=== PATIENT | male | born 1960 | race Two or more races ===

== ENCOUNTER → 2024-02-28 | Outpatient (CLI) | payer OTHER, MEDICAID | END | disposition home or self-care (01) | LOC: Rad HDHVI 10:53 | PROVIDERS: ATTEND Internal Medicine Cardiovascular Disease | DX: R07.9 Chest pain, unspecified (principal); I10 Essential (primary) hypertension; R06.02 Shortness of breath | CPT/HCPCS: 93306 ==

== ENCOUNTER → 2024-03-07 | Outpatient (CLI) | payer OTHER, MEDICAID ==
[~2024-03-07] VITALS: Ht 182.9 cm; Wt 106.1 kg
[~2024-03-07] MED LIST: ADENOSINE 89 MG in GIVE UN-DILUTED 0 ML IV ONE; ADENOSINE 90 MG/30 ML INJ IV ONE
== END | disposition home or self-care (01) ==
LOC: Rad HDHVI 07:57
PROVIDERS: ATTEND Internal Medicine Cardiovascular Disease
DX: I10 Essential (primary) hypertension (principal); E11.9 Type 2 diabetes mellitus without complications; E78.5 Hyperlipidemia, unspecified; R07.89 Other chest pain; Z82.49 Family history of ischemic heart disease and other diseases of the circulatory system
CPT/HCPCS: 78452; 93005; 96374; 96375; A9500; J0153

== ENCOUNTER 2024-12-26 14:36 | Inpatient (IN) | payer MEDICAID, OTHER ==
[~2024-12-26] VITALS: Ht 185.4 cm; Wt 104.3 kg
--- NOTE | 2024-12-26 15:21 | ED.PDOC ---
HPI Comments 64 y.o male with PMHx of hypothyroidism, AFIB, HTN and DM, presents to the ED for a chief complaint of chest pain associated with SOB, nausea, vomiting and dizziness that started 3 days ago. Patient also mentions HR ranges between 145- 150 since symptoms presented at rest. He was recent admitted at [facility] due to PNA. 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 Upon ED arrival, patient was hypoxic with SPO2 of 87% RA and was placed on 4liters NC. He denies any tobacco, alcohol or substance use. Chief Complaint: Chest Pain Time Seen by MD: 15:00 Reviewed Notes: Nurses Notes, Medications, Allergies Allergies: Coded Allergies: NO KNOWN ALLERGIES (Unverified , 10/18/22) Information Source: Patient Mode of Arrival: Wheelchair Severity: Moderate Duration: Since onset Location: Substernal Radiation: No Radiation Quality: Sharp Cardiac Risk Factors: Hyperlipidemia, HTN PE Risk Factors: None History of: Similar pain in past Modifying Factors: Nothing Associated Signs and Symptoms: SOB Past Medical History PAST MEDICAL HISTORY: AFIB, COPD, DM, HTN, Thyroid Family History Family History: Reviewed,noncontributory to illness Social History Smoker: Non-Smoker Alcohol: Denies ETOH Use Drugs: Denies Drug Use Lives In: Home Constitutional: reports: malaise; denies: chills, diaphoresis, fatigue, fever, sweats, weakness, others EENTM: denies: blurred vision, double vision, ear bleeding, ear discharge, ear drainage, ear pain, ear ringing, eye pain, eye redness, hearing loss, mouth pain, mouth swelling, nasal discharge, nose bleeding, nose congestion, nose pain, photophobia, tearing, throat pain, throat swelling, voice changes, others Respiratory: reports: SOB at rest, shortness of breath; denies: cough, hemoptysis, orthopnea, SOB with excertion, stridor, wheezing, others Cardiovascular: reports: chest pain; denies: dizzy spells, diaphoresis, Dyspnea on exertion, edema, irregular heart beat, left arm pain, lightheadedness, palpitations, PND, syncope, others Gastrointestinal: reports: nausea, vomiting; denies: abdomen distended, abdominal pain, blood streaked bowels, constipated, diarrhea, dysphagia, difficulty swallowing, hematemesis, melena, poor appetite, poor fluid intake, rectal bleeding, rectal pain, others Genitourinary: denies: burning, dysuria, flank pain, frequency, hematuria, incontinence, penile discharge, penile sore, pain, testicle pain, testicle swelling, urgency, others Neurological: reports: dizziness; denies: fainting, headache, left sided numbness, left sided weakness, numbness, paresthesia, pre-existing deficit, right sided numbness, right sided weakness, seizure, speech problems, tingling, tremors, weakness, others Musculoskeletal: denies: back pain, gout, joint pain, joint swelling, muscle pain, muscle stiffness, neck pain, others Integumetry: denies: bruises, change in color, change in hair/nails, dryness, laceration, lesions, lumps, rash, wounds, others Allergic/Immunocompromised: denies: Difficulty Healing, Frequent Infections, Hives, Itching, others Hematologic/Lymphatic: denies: anemia, blood clots, easy bleeding, easy bruising, swollen glands, others Endocrine: denies: excessive hunger, excessive sweating, excessive thirst, excessive urination, flushing, intolerance to cold, intolerance to heat, unexplained weight gain, unexplained weight loss, others Psychiatric: denies: anxiety, bipolar disorder, depression, hopeless, panic disorder, schizophrenia, sleepless, suicidal, others All Other Systems: Reviewed and Negative Physical Exam General Appearance: Moderate Distress HEENT: Normal ENT Inspection, Pharynx Normal, TMs Normal Neck: Full Range of Motion, Non-Tender, Normal, Normal Inspection Respiratory: Other (Coarse breath sounds) Cardiovascular: Irregular Breast Exam: Deferred Gastrointestinal: No Organomegaly, Non Tender, No Pulsatile Mass, Normal Bowel Sounds, Soft Genitalia: Deferred Pelvic: Deferred Rectal: Deferred Extremities: No calf tenderness, Normal capillary refill, Normal inspection, Normal range of motion, Non-tender, No pedal edema Musculoskeletal : Apperance: Normal 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 Was a procedure done?: No CP Differential Dx Differential Diagnosis: A-fib, A-Flutter, Angina, Anxiety / Panic Attack, Atrial Dysrhythmia, Electrolyte Disorder Differential Diagnosis: Angina, Chest Wall Pain, Cholelithiasis, Costochondritis, Pericarditis X-Ray, Labs, Meds, VS Vital Signs Date Time Temp Pulse Resp B/P (MAP) Pulse Ox O2 Delivery O2 Flow Rate FiO2 12/26/24 17:33 105 12/26/24 16:30 117 23 100/66 (77) 91 12/26/24 16:24 113 23 88 Nasal Cannula* 4 36 12/26/24 16:15 113 19 94/58 (70) 91 12/26/24 16:00 112 22 92/68 (76) 92 12/26/24 15:50 96 20 92/67 (75) 92 12/26/24 15:32 113 12/26/24 15:21 121 12/26/24 15:02 98.8 113 23 90/63 (72) 88 98.8 12/26/24 14:42 121 12/26/24 14:40 98.2 129 16 125/76 87 98.2 Lab Test 12/26/24 15:52 12/26/24 15:35 12/26/24 14:45 Range/Units Troponin I High Sensitivity < 3 L < 3 L </=54 ng/L Lactic Acid Level 2.0 0.4-2.0 mmol/L White Blood Count 15.1 H 4.4-10.8 10^3/uL Red Blood Count 4.65 4.5-5.90 10^6/uL Hemoglobin 13.3 L 13.5-17.5 g/dL Hematocrit 39.5 L 41.0-53.0 % Mean Corpuscular Volume 85.0 80.0-100.0 fL Mean Corpuscular Hemoglobin 28.5 28.0-32.0 pg Mean Corpuscular Hemoglobin Concent 33.6 32.0-36.0 g/dL Red Cell Distribution Width 16.7 H 11.8-14.3 % Platelet Count 297 140-450 10^3/uL Mean Platelet Volume 8.7 6.9-10.8 fL Neutrophils (%) (Auto) 84.7 H 37.0-80.0 % Lymphocytes (%) (Auto) 7.4 L 10.0-50.0 % Monocytes (%) (Auto) 7.7 0.0-12.0 % Eosinophils (%) (Auto) 0.1 0.0-7.0 % Basophils (%) (Auto) 0.1 0.0-2.0 % Neutrophils # (Auto) 12.8 H 1.6-8.6 10 ^3/uL Lymphocytes # (Auto) 1.1 0.4-5.4 10 ^3/uL Monocytes # (Auto) 1.2 0-1.3 10 ^3/uL Eosinophils # (Auto) 0 0-0.8 10 ^3/uL Basophils # (Auto) 0 0-0.2 10 ^3/uL Nucleated Red Blood Cells 0.0 % Sodium Level 140 136-145 mmol/L Potassium Level 4.3 3.5-5.1 mmol/L Chloride Level 103 98-107 mmol/L Carbon Dioxide Level 25 20-31 mmol/L Anion Gap 12 5-15 Blood Urea Nitrogen 22 9-23 mg/dL Creatinine 1.92 H 0.700-1.30 mg/dL Glomerular Filtration Rate Calc 38 >90 mL/min BUN/Creatinine Ratio 11.5 10.0-20.0 Serum Glucose 106 74-106 mg/dL Calcium Level 8.6 L 8.7-10.4 mg/dL Current Medications Medications (Trade) Dose Ordered Sig/Justine Route Start Time Stop Time Status Last Admin Cefepime HCl 50 ml @ 50 mls/hr ONCE ONCE IV 12/26/24 15:15 12/26/24 16:14 DC 12/26/24 15:47 Sodium Chloride 1,000 ml @ 1,000 mls/hr Q1H ONCE IV 12/26/24 15:15 12/26/24 16:14 DC 12/26/24 15:46 . [place] [id number] Ph: [phone] DIAGNOSTIC IMAGING Diagnostic Imaging Report : [id number] Signed PATIENT: ORALIA MATAMOROS ACCT: [id number] UNIT: [id number] : 1960 LOC: ER ROOM / BED: / AGE / SEX: 64 / M ADM STATUS: REG ER SERVICE 1510 ORDERING PHYSICIAN: ELINA HARRIS MD PROCEDURE(s): CXRP - CHEST PORTABLE REASON: sob ORDER NUMBER(s): [id number], ACCESSION NUMBER(s): [id number] CHEST RADIOGRAPH Indication: sob Technique: Single frontal view of the chest was obtained Comparison: XR CHEST 1 VIEW on DOS: 12/16/24, XR CHEST 1 VIEW on DOS: 12/16/24, XR CHEST 1 VIEW on DOS: 12/16/24 FINDINGS: Lines and Tubes: None Lungs: Interstitial prominence with left mid and lower lung zone opacities. Pleura: No effusion. No pneumothorax. Cardiomediastinal contours: Unremarkable Bones: No acute osseous abnormality. IMPRESSION: Interstitial prominence with left mid and lower lung zone opacity which may represent multifocal pneumonia. ATED BY: KATHY KIMBALL DO DICTATED DATE/TIME: 12/26/241540 SIGNED BY: KATHY KIMBALL DO SIGNED DATE/TIME: 12/26/241540 CC: Patient alert. Placed on oxygen. Possible pneumonitis. Answering questions. Possible sepsis. WBC elevated. Establish intravenous access. Was given fluids. Was given antibiotics. Explained to the patient. Continue monitoring. Time of 1ST Reevaluation: 15:11 Reevaluation 1ST: Unchanged Patient Education/Counseling: Diagnosis, Treatment, Prognosis Family Education/Counseling: Diagnosis, Treatment, Prognosis SEPSIS Sepsis Screen Date sepsis recognized/suspect: Dec 26, 2024 Time Sepsis recognized/suspect: 1440 Recent Procedure: No On Antibiotic Therapy: No Respiratory Rate >20: No Heart Rate >90: Yes Temp<36 C (96.8 F) or >38.3 C: No SBP <90 or MAP <65 mmHG: No New Acute Mental Status Change: No Is the patient on CPAP, BIPAP,: No Physician Orders Electrocardigram (12/26/24 15:37) Electrocardigram (12/26/24 17:37) Chest Portable (12/26/24 15:10) Urinalysis (12/26/24 15:10) Blood Culture (12/26/24 15:10) Sodium Chloride 0.9% (12/26/24 15:15) Amiodarone 450mg/250ml Ae (Cordarone) (12/26/24 16:30) Azithromycin 500mg/ 250ml (Zithromax 50 (12/26/24 16:30) Vital Signs Date Time Temp Pulse Resp B/P (MAP) Pulse Ox O2 Delivery O2 Flow Rate FiO2 12/26/24 17:33 105 12/26/24 16:30 117 23 100/66 (77) 91 12/26/24 16:24 113 23 88 Nasal Cannula* 4 36 12/26/24 16:15 113 19 94/58 (70) 91 12/26/24 16:00 112 22 92/68 (76) 92 12/26/24 15:50 96 20 92/67 (75) 92 12/26/24 15:32 113 12/26/24 15:21 121 12/26/24 15:02 98.8 113 23 90/63 (72) 88 98.8 12/26/24 14:42 121 12/26/24 14:40 98.2 129 16 125/76 87 98.2 Laboratory Tests Test 12/26/24 14:45 12/26/24 15:35 White Blood Count 15.1 10^3/uL (4.4-10.8) H Lactic Acid Level 2.0 mmol/L (0.4-2.0) Medications Medications Dose Ordered Sig/Justine Route Start Time Stop Time Status Last Admin Dose Admin Cefepime HCl 50 ml @ 50 mls/hr ONCE ONCE IV 12/26/24 15:15 12/26/24 16:14 DC 12/26/24 15:47 Sodium Chloride 1,000 ml @ 1,000 mls/hr Q1H ONCE IV 12/26/24 15:15 12/26/24 16:14 DC 12/26/24 15:46 Departure 1 Departure Time of Disposition: 16:16 Impression: Primary Impression: Atrial fibrillation Qualified Codes: I48.0 - Paroxysmal atrial fibrillation Additional Impressions: Sepsis, unspecified organism Qualified Codes: A41.9 - Sepsis, unspecified organism Pneumonitis Disposition: ADMITTED INPATIENT Admit to: Med Surg Condition: Guarded Critical Care Note Critical Care Time?: Yes (90 min-critical care time only) Stability Stability form required: No Heart Score Heart Score: Heart Score Response (Comments) Value History Moderate Suspicious 1 EKG Normal 0 Age >65 2 Risk Factors >3 or Hx ASHD 2 Troponin Normal limit 0 Total 5 I personally scribed for ELINA HARRIS MD ([email or web address]) on 12/26/24 at 15:21. Electronically submitted by Naomi Anand ([facility]). I personally scribed for ELINA HARRIS MD ([email or web address]) on 12/26/24 at 17:43. Electronically submitted by Vineet Camejo [email or web address]). ELINA HARRIS MD Dec 26, 2024 15:21
[2024-12-26 15:24] LABS: Hematocrit 39.5 % (41.0-53.0); Hemoglobin 13.3 g/dL (13.5-17.5); Mean Corpuscular Hemoglobin 28.5 pg (28.0-32.0); Mean Corpuscular Volume 85.0 fL (80.0-100.0); Nucleated Red Blood Cells % 0.0 %
[2024-12-26 15:29] LABS: Chloride 103 mmol/L (98-107); Potassium 4.3 mmol/L (3.5-5.1); Sodium 140 mmol/L (136-145)
[2024-12-26 15:30] LABS: Anion Gap 12 (5-15); Carbon Dioxide 25 mmol/L (20-31)
[2024-12-26 15:32] LABS: Calcium 8.6 mg/dL (8.7-10.4)
--- NOTE | 2024-12-26 15:34 | ECG ---
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
[2024-12-26 15:35] LABS: BUN/Creatinine Ratio 11.5 (10.0-20.0); Blood Urea Nitrogen 22 mg/dL (9-23)
[2024-12-26 15:39] LABS: Glucose 106 mg/dL (74-106)
--- NOTE | 2024-12-26 15:43 | DVH ---
CHEST RADIOGRAPH Indication: sob Technique: Single frontal view of the chest was obtained Comparison: XR CHEST 1 VIEW on DOS: 12/16/24, XR CHEST 1 VIEW on DOS: 12/16/24, XR CHEST 1 VIEW on DO S: 12/16/24 FINDINGS: Lines and Tubes: None Lungs: Interstitial prominence with left mid and lower lung zone opacities. Pleura: No effusion. No pneumothorax. Cardiomediastinal contours: Unremarkable Bones: No acute osseous abnormality. IMPRESSION: Interstitial prominence with left mid and lower lung zone opacity which may represent multifocal pneu monia.
[2024-12-26] MEDS: SODIUM CHLORIDE 0.9% 1,000 ML IV ONE ×2 (15:46→17:50)
[2024-12-26] MEDS: CEFEPIME 1GM/50ML 50 ML IV ONE (15:47)
[2024-12-26] MEDS: ONDANSETRON HCL 4 MG/2 ML VIAL IV ONE (15:47)
[2024-12-26 16:24] VITALS: PULSE 113; RESP 23; O2SAT 88
[2024-12-26] MEDS: MORPHINE SULFATE INJ 2 MG/ml SYRG IV ONE (17:50)
[2024-12-26] MEDS: AMIODARONE BOLUS KIT 100 ML IV ONE (18:24)
--- NOTE | 2024-12-26 18:37 | ECG ---
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
[2024-12-26] MEDS: AZITHROMYCIN 500MG/ 250ML 250 ML IV ONE (18:50)
[2024-12-26 19:52] VITALS: PULSE 72; RESP 18; O2SAT 97
[2024-12-26] MEDS ORDERED: ACETAMINOPHEN 325 MG TAB PO PRN (21:30)
[2024-12-26] MEDS ORDERED: DOCUSATE SOD 100 MG CAP PO PRN (21:30)
[2024-12-26] MEDS ORDERED: MORPHINE SULFATE INJ 2 MG/ml SYRG IV PRN (22:15)
[2024-12-26] MEDS ORDERED: NITROGLYCERIN 0.4 MG SL TAB SL PRN (22:15)
--- NOTE | 2024-12-26 22:21 | DVHHP2 ---
History of Present Illness Reason for Visit: Acute chest pain History of Present Illness The patient is a 64-year-old male with past medical history of COPD, DM, thyroid disease, AFib, and hypertension who presented to [facility] ED with complaint of chest pain. Patient reports that he has been experiencing substern al chest pain associated with shortness of breaths, nausea, vomiting, malaise, and dizziness for the past 3 days. Patient was recently seen at [facility] due to pneumonia. 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 Patient was seen and evaluated in the ED, laboratory data shows elevated WBC 15.1, hemoglobin 13.3, hematocrit 39.5, platelets 297, sodium 140, potassium 4.3, BUN 22, creatinine 1.92, glucose 106, calcium 8.6, troponin < 3, blood pressure 118/72, heart rate 118 trending down to 78, temperature 9 8.0 F, O2 saturation 97% on oxygen. Chest x-ray revealing interstitial prominence with left mid and lower lung zone opacity which may represent multifocal pneumonia. Patient was started on IV antibiotic regimen azithromycin, please see medication orders section in the computer. On my assessment, patient denied chest pain at this moment, no diaphoresis, dizziness, headache, currently on oxygen, no diarrhea, nausea, vomiting, fever, no chills. Patient was admitted for further evaluation and medical management. Past Medical History AFIB, COPD, DM, HTN, Thyroid Past Surgical History Denies all surgeries Family History Reviewed, noncontributory to the management of this case. Past Social History The patient lives at home, denies smoking, alcohol or illicit drugs abuse. Review of Systems Constitutional: Yes: Weakness, Malaise; No: Fever, Chills, Sweats, Other Eyes: No: Pain, Vision change, Conjunctivae inflammation, Eyelid inflammation, Other, Redness ENT: No: Ear pain, Ear discharge, Nose pain, Nose discharge, Nose congestion, Mouth pain, Mouth swelling, Throat pain, Throat swelling, Other Respiratory: Shortness of breath, Other (SOB at rest); No: Cough, Dry, SOB with excertion, Wheezing, Hemoptysis, Pleuritic Pain, Sputum, Wheezing Cardiovascular: Chest Pain; No: Palpitations, Orthopnea, Paroxysmal Noc. Dyspnea, Edema, Lt Headedness, Other Gastrointestinal: Nausea, Vomiting; No: Abdominal Pain, Diarrhea, Constipation, Melena, Hematochezia, Other Genitourinary: No Dysuria, No Frequency, No Incontinence, No Hematuria, No Retention, No Other Musculoskeletal: No: other, neck pain, shoulder pain, arm pain, back pain, hand pain, leg pain, foot pain Neurological: Other (Dizziness); No: Weakness, Numbness, Incoordination, Change in speech, Confusion, Seizures Allergies: Coded Allergies: NO KNOWN ALLERGIES (Unverified , 10/18/22) Medications Current Medications Medications Dose Ordered Sig/Justine Route Start Time Stop Time Status Last Admin Dose Admin Azithromycin 250 ml @ 125 mls/hr DAILY@1900 IV 12/27/24 19:00 UNV Carvedilol 12.5 mg Q12HR PO 12/26/24 22:00 UNV Clonidine HCl 0.1 mg Q4HP PRN PO 12/26/24 21:30 UNV Levothyroxine Sodium 100 mcg QAM@0600 PO 12/27/24 06:00 UNV Atorvastatin Calcium 20 mg HS PO 12/26/24 22:00 UNV Ceftriaxone Sodium 50 ml @ 100 mls/hr DAILY@09 IV 12/27/24 09:00 UNV Apixaban 5 mg BID PO 12/26/24 22:00 UNV Sodium Chloride 10 ml Q8HR IV 12/26/24 22:00 UNV Acetaminophen/ Hydrocodone Bitart 1 tab Q4HP PRN PO 12/26/24 21:30 UNV Ondansetron HCl 4 mg Q4HP PRN IV 12/26/24 21:30 UNV Docusate Sodium 100 mg BIDPRN PRN PO 12/26/24 21:30 UNV Acetaminophen 650 mg Q6HP PRN PO 12/26/24 21:30 UNV Guaifenesin/ Dextromethorphan 10 ml Q6HPRN PRN PO 12/26/24 22:00 UNV Exam Vital Signs Vital Signs Date Time Temp Pulse Resp B/P (MAP) Pulse Ox O2 Delivery O2 Flow Rate FiO2 12/26/24 19:52 72 18 97 Room Air* 0 21 12/26/24 19:52 98.0 118/72 (87) 98.0 General Appearance: Alert, Oriented X3, Cooperative, No acute distress HEENT: Atraumatic, PERRLA, EOMI, Mucous membr. moist/pink Respiratory: Normal air movement, Other (Diminished breath sounds) Cardiovascular: Regular rate, Normal S1, Normal S2, No murmurs Abdominal: Normal bowel sounds, Soft, No tenderness, No hepatospenomegaly, No masses Extremities: No clubbing, No cyanosis, No edema, Normal pulses, No tenderness/swelling Skin: No rashes, No breakdown, No significant lesion Neuro: Normal speech, Normal tone, Sensation intact, Cranial nerves 3-12 NL, Reflexes 2+, Other (Generalized weakness) Psych/Mental Status: Mental status NL, Mood NL Labs/Xrays Labs Test 12/26/24 15:52 12/26/24 15:35 12/26/24 14:45 Range/Units Troponin I High Sensitivity < 3 L </=54 ng/L Lactic Acid Level 2.0 0.4-2.0 mmol/L White Blood Count 15.1 H 4.4-10.8 10^3/uL Red Blood Count 4.65 4.5-5.90 10^6/uL Hemoglobin 13.3 L 13.5-17.5 g/dL Hematocrit 39.5 L 41.0-53.0 % Mean Corpuscular Volume 85.0 80.0-100.0 fL Mean Corpuscular Hemoglobin 28.5 28.0-32.0 pg Mean Corpuscular Hemoglobin Concent 33.6 32.0-36.0 g/dL Red Cell Distribution Width 16.7 H 11.8-14.3 % Platelet Count 297 140-450 10^3/uL Mean Platelet Volume 8.7 6.9-10.8 fL Neutrophils (%) (Auto) 84.7 H 37.0-80.0 % Lymphocytes (%) (Auto) 7.4 L 10.0-50.0 % Monocytes (%) (Auto) 7.7 0.0-12.0 % Eosinophils (%) (Auto) 0.1 0.0-7.0 % Basophils (%) (Auto) 0.1 0.0-2.0 % Neutrophils # (Auto) 12.8 H 1.6-8.6 10 ^3/uL Lymphocytes # (Auto) 1.1 0.4-5.4 10 ^3/uL Monocytes # (Auto) 1.2 0-1.3 10 ^3/uL Eosinophils # (Auto) 0 0-0.8 10 ^3/uL Basophils # (Auto) 0 0-0.2 10 ^3/uL Nucleated Red Blood Cells 0.0 % Sodium Level 140 136-145 mmol/L Potassium Level 4.3 3.5-5.1 mmol/L Chloride Level 103 98-107 mmol/L Carbon Dioxide Level 25 20-31 mmol/L Anion Gap 12 5-15 Blood Urea Nitrogen 22 9-23 mg/dL Creatinine 1.92 H 0.700-1.30 mg/dL Glomerular Filtration Rate Calc 38 >90 mL/min BUN/Creatinine Ratio 11.5 10.0-20.0 Serum Glucose 106 74-106 mg/dL Calcium Level 8.6 L 8.7-10.4 mg/dL PATIENT: ORALIA MATAMOROS ACCT: [id number] UNIT: [id number] : 1960 LOC: ER ROOM / BED: / AGE / SEX: 64 / M ADM STATUS: REG ER SERVICE 1510 ORDERING PHYSICIAN: ELINA HARRIS MD PROCEDURE(s): CXRP - CHEST PORTABLE REASON: sob ORDER NUMBER(s): [id number], ACCESSION NUMBER(s): [id number] CHEST RADIOGRAPH Indication: sob Technique: Single frontal view of the chest was obtained Comparison: XR CHEST 1 VIEW on DOS: 12/16/24, XR CHEST 1 VIEW on DOS: 12/16/24, XR CHEST 1 VIEW on DOS: 12/16/24 FINDINGS: Lines and Tubes: None Lungs: Interstitial prominence with left mid and lower lung zone opacities. Pleura: No effusion. No pneumothorax. Cardiomediastinal contours: Unremarkable Bones: No acute osseous abnormality. IMPRESSION: Interstitial prominence with left mid and lower lung zone opacity which may represent multifocal pneumonia. SEPSIS Sepsis Screen Date sepsis recognized/suspect: Dec 26, 2024 Time Sepsis recognized/suspect: 1954 Recent Procedure: No On Antibiotic Therapy: No Respiratory Rate >20: No Heart Rate >90: No Temp<36 C (96.8 F) or >38.3 C: No SBP <90 or MAP <65 mmHG: No New Acute Mental Status Change: No Is the patient on CPAP, BIPAP,: No Physician Orders Electrocardigram (12/26/24 17:37) Chest Portable (12/26/24 15:10) Urinalysis (12/26/24 15:10) Blood Culture (12/26/24 15:10) Amiodarone 450mg/250ml Ae (Cordarone) (12/26/24 16:30) Azithromycin 500mg/ 250ml (Zithromax 50 (12/27/24 19:00) Carvedilol Tablet (Coreg Tablet) (12/26/24 22:00) Clonidine Hcl Tablet (Catapres Tablet) (12/26/24 21:30) Thyroid Stimulating Hormone (12/26/24 21:22) Levothyroxine Tablet (Synthroid Tablet) (12/27/24 06:00) Atorvastatin (Lipitor) (12/26/24 22:00) Ceftriaxone 1gm/50ml (Rocephin) (12/27/24 09:00) Apixaban (Eliquis) (12/26/24 22:00) Allergies (12/26/24 21:22) Code Status (12/26/24 21:22) Sodium Chloride Lock (Saline Lock Ns) (12/26/24 22:00) Oxygen Per Hour (12/26/24 21:22) Hydrocodone-Acet 5/325mg Tab ([place] 5/32 (12/26/24 21:30) Ondansetron Hcl (Zofran) (12/26/24 21:30) Docusate Sodium Capsule (Colace Capsule) (12/26/24 21:30) Complete Blood Count (12/27/24 04:00) Comprehensive Metabolic Panel (12/27/24 04:00) Cardiac Diet-2gna,Lofat,Lochol (12/27/24 Breakfast) Condition: Serious (12/26/24 21:22) Acetaminophen Tablet (Tylenol Tablet) (12/26/24 21:30) Bedrest With Bathroom Privileg (12/26/24 21:22) Maintain Bed Rest (12/26/24 21:22) Sequential Compression Device (12/26/24 ) *Dr. Poly Desai -Da Mary (12/26/24 21:22) Guaifenesin-Dextromet Liquid (Robitussin (12/26/24 22:00) Admit (12/26/24 22:04) Nitroglycerin Sublingual (Ntrostat Subli (12/26/24 22:15) Vital Signs Date Time Temp Pulse Resp B/P (MAP) Pulse Ox O2 Delivery O2 Flow Rate FiO2 12/26/24 19:52 72 18 97 Room Air* 0 21 12/26/24 19:52 98.0 78 18 118/72 (87) 97 98.0 12/26/24 18:20 101 22 112/74 12/26/24 18:00 117 22 102/75 (84) 94 12/26/24 17:50 105 22 115/81 12/26/24 17:33 105 12/26/24 17:00 106 22 106/74 (85) 93 12/26/24 16:30 117 23 100/66 (77) 91 12/26/24 16:24 113 23 88 Nasal Cannula* 4 36 12/26/24 16:15 113 19 94/58 (70) 91 12/26/24 16:00 112 22 92/68 (76) 92 12/26/24 15:50 96 20 92/67 (75) 92 12/26/24 15:32 113 12/26/24 15:21 121 12/26/24 15:02 98.8 113 23 90/63 (72) 88 98.8 12/26/24 14:42 121 12/26/24 14:40 98.2 129 16 125/76 87 98.2 Laboratory Tests Test 12/26/24 14:45 12/26/24 15:35 White Blood Count 15.1 10^3/uL (4.4-10.8) H Lactic Acid Level 2.0 mmol/L (0.4-2.0) Medications Medications Dose Ordered Sig/Justine Route Start Time Stop Time Status Last Admin Dose Admin Amiodarone HCl 100 ml @ 600 mls/hr ONCE ONCE IV 12/26/24 16:30 12/26/24 16:39 DC 12/26/24 18:24 600 MLS/HR Amiodarone HCl 250 ml @ 33.33 mls/ hr Q7H31M ONCE IV 12/26/24 16:30 12/27/24 00:00 12/26/24 18:49 33.33 MLS/HR Azithromycin 250 ml @ 125 mls/hr ONCE ONCE IV 12/26/24 16:30 12/26/24 18:29 DC 12/26/24 18:50 125 MLS/HR Cefepime HCl 50 ml @ 50 mls/hr ONCE ONCE IV 12/26/24 15:15 12/26/24 16:14 DC 12/26/24 15:47 50 MLS/HR Morphine Sulfate 2 mg ONCE ONCE IV 12/26/24 15:30 12/26/24 15:31 DC 12/26/24 17:50 2 MG Ondansetron HCl 4 mg ONCE ONCE IV 12/26/24 15:30 12/26/24 15:31 DC 12/26/24 17:49 4 MG Sodium Chloride 1,000 ml @ 150 mls/hr Q6H40M ONCE IV 12/26/24 15:15 12/26/24 21:54 DC 12/26/24 17:50 150 MLS/HR Sodium Chloride 1,000 ml @ 1,000 mls/hr Q1H ONCE IV 12/26/24 15:15 12/26/24 16:14 DC 12/26/24 15:46 1,000 MLS/HR Assessment/Plan Assessment/Plan Acute chest pain Acute renal injury Atrial fibrillation Leukocytosis, unspecified Pneumonia, unspecified organism Generalized weakness Plan 1. Admit to telemetry unit 2. Breathing treatment 3. Pain control management 4. IV antibiotic management 5. Management of fluids and electrolytes 6. Consultation for hospitalist/nephrology 7. Diagnostic test chest x-ray 8. DVT prophylaxis-on Eliquis 9. Repeat labs CBC, CMP in a.m. 10. Home medication reviewed and reconciled 11. Continue with current medical management 12. Treatment plan discussed with patient and RN. Patient verbalized understanding. Plan discussed with: Patient, Other (RN) My Orders Orders - TANJA GHOSH DNP Procedure Category Date Status Time Azithromycin 500mg/ PHA 12/27/24 Logged 250ml (Zithromax 50 19:00 Carvedilol Tablet PHA 12/26/24 Logged (Coreg Tablet) 22:00 Clonidine Hcl Tablet PHA 12/26/24 Logged (Catapres Tablet) 21:30 Thyroid Stimulating LAB 12/26/24 In Process Hormone 21:22 Levothyroxine Tablet PHA 12/27/24 Logged (Synthroid Tablet) 06:00 Atorvastatin (Lipitor) PHA 12/26/24 Logged 22:00 Ceftriaxone 1gm/50ml PHA 12/27/24 Logged (Rocephin) 09:00 Apixaban (Eliquis) [facility] 12/26/24 Logged 22:00 Allergies [facility] 12/26/24 In Process 21:22 Code Status CODE 12/26/24 Transmitted 21:22 Sodium Chloride Lock PHA 12/26/24 Logged (Saline Lock Ns) 22:00 Oxygen Per Hour RT 12/26/24 Transmitted 21:22 Hydrocodone-Acet PHA 12/26/24 Logged 5/325mg Tab ([place] 21:30 Ondansetron Hcl [facility] 12/26/24 Logged (Zofran) 21:30 Docusate Sodium [facility] 12/26/24 Logged Capsule (Colace 21:30 Complete Blood Count LAB 12/27/24 Verified 04:00 Comprehensive LAB 12/27/24 Verified Metabolic Panel 04:00 Cardiac DIET 12/27/24 Transmitted Diet-2gna,Lofat,Lochol Breakfast Condition: Serious LUISA 12/26/24 In Process 21:22 Acetaminophen Tablet [facility] 12/26/24 Logged (Tylenol Tablet) 21:30 Bedrest With Bathroom LUISA 12/26/24 In Process Privileg 21:22 Maintain Bed Rest [facility] 12/26/24 In Process 21:22 Sequential [facility] 12/26/24 In Process Compression Device *Dr. Poly Desai -Da CONS 12/26/24 Transmitted Mary 21:22 Guaifenesin-Dextromet [facility] 12/26/24 Logged Liquid (Robitussin 22:00 Admit ADMIT 12/26/24 Verified 22:04 Nitroglycerin [facility] 12/26/24 Verified Sublingual (Ntrostat 22:15 Problem List: (1) Acute chest pain (2) Acute renal injury (3) Atrial fibrillation (4) Leukocytosis, unspecified (5) Sepsis, unspecified organism (6) Generalized weakness Date of Service: Dec 26, 2024 Billing Provider: TANJA GHOSH DNP Common Visit Codes: [id number] INP/OBS CARE (HIGH) TANJA GHOSH DNP Dec 26, 2024 22:21
[2024-12-26] MEDS: guaiFENesin-DM 100/10mg/5ml SYR PO PRN (22:23)
[2024-12-26] MEDS: SODIUM CHLOR 0.9% PF (SALINE LOCK) 10ML VIAL/SYR IV SCH (22:24)
[2024-12-26] MEDS: ATORVASTATIN 20 MG TAB PO SCH (22:28)
[2024-12-26] MEDS: APIXABAN 5 MG TAB PO SCH (22:28)
[2024-12-26] MEDS: CARVEDILOL 12.5 MG TAB PO SCH (22:28)
[2024-12-26 23:40] VITALS: PULSE 87; RESP 18; O2SAT 92
[2024-12-26] MEDS: IPRATROPIUM BROM 0.5 MG/2.5ML INH SOL NEB PRN (23:42)
[2024-12-26] MEDS: ALBUTEROL SULF 2.5 MG/0.5ML(0.5%) NEB SOLN NEB PRN (23:42)
[2024-12-26 23:50] VITALS: PULSE 89; RESP 18; O2SAT 95
[2024-12-27] VITALS (17 sets, daily range): BP systolic 96–135; BP diastolic 71–96; PULSE 85–127; RESP 18–20; TEMP 98–98.9; O2SAT 89–97
[2024-12-27] MEDS: HYDROcodone-ACET 5/325MG TAB PO PRN (01:13)
[2024-12-27] MEDS ORDERED: LEVO100T8 PO (04:02)
[2024-12-27] MEDS ORDERED: SEMA2INJ3 SC (04:02)
[2024-12-27] MEDS ORDERED: NALD0.2T7 PO (04:02)
[2024-12-27] MEDS ORDERED: METF-371 PO (04:02)
[2024-12-27] MEDS ORDERED: PREG150C PO (04:02)
[2024-12-27] MEDS ORDERED: HYDR-4798 PO (04:02)
[2024-12-27] MEDS ORDERED: BUDE1AER16 IN (04:02)
[2024-12-27] MEDS ORDERED: BACL10TA PO (04:02)
[2024-12-27] MEDS ORDERED: CARV6.2551 PO (04:02)
[2024-12-27] MEDS ORDERED: ATOR-507 PO (04:02)
[2024-12-27] MEDS ORDERED: MECL-90 PO (04:02)
[2024-12-27] MEDS ORDERED: OMEP20TA PO (04:02)
[2024-12-27] MEDS ORDERED: LOSA-535 PO (04:02)
[2024-12-27] MEDS ORDERED: AMLO1TAB22 PO (04:02)
[2024-12-27] MEDS ORDERED: TIOT1AER2 IN (04:02)
[2024-12-27] MEDS: LEVOTHYROXINE SODIUM 100 MCG TAB PO SCH (06:05)
[2024-12-27 06:14] LABS: Hematocrit 38.1 % (41.0-53.0); Hemoglobin 12.8 g/dL (13.5-17.5); Mean Corpuscular Hemoglobin 28.5 pg (28.0-32.0); Mean Corpuscular Volume 85.0 fL (80.0-100.0); Nucleated Red Blood Cells % 0.0 %
[2024-12-27 06:36] LABS: Alanine Aminotransferase 10 U/L (7-40); Albumin 4.4 g/dL (3.2-4.8); Anion Gap 10 (5-15); BUN/Creatinine Ratio 13.6 (10.0-20.0); Blood Urea Nitrogen 18 mg/dL (9-23); Carbon Dioxide 25 mmol/L (20-31); Chloride 105 mmol/L (98-107); Potassium 4.4 mmol/L (3.5-5.1); Sodium 140 mmol/L (136-145); Total Protein 7.0 g/dL (5.7-8.2)
[2024-12-27 06:37] LABS: Alkaline Phosphatase 42 U/L (46-116); Bilirubin, Total 1.1 mg/dL (0.2-1.0); Calcium 8.6 mg/dL (8.7-10.4); Glucose 109 mg/dL (74-106)
--- NOTE | 2024-12-27 10:33 | ECG ---
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
[2024-12-27] MEDS: AMIODARONE HCL 200 MG TAB PO SCH (11:00)
[2024-12-27 14:35] LABS: Urine Protein, UAD Negative (Negative)
--- NOTE | 2024-12-27 15:04 | ECG ---
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
--- NOTE | 2024-12-27 16:17 | DVHINCON2 ---
Date of service: Dec 27, 2024 Reason for Consultation HANNY History of Present Illness 64-year-old male with past medical history of chronic kidney disease, hypertension diabetes hyperlipidemia, hypothyroidism and coronary artery disease patient presents to the hospital complaining of chest pain he was admitted for this reason nephrology is consulted due to elevated creatinine level Allergies: Coded Allergies: NO KNOWN ALLERGIES (Unverified , 10/18/22) Home Meds Reported Medications Levothyroxine Sodium (Levothyroxine Sodium) 100 Mcg Tab, 100 MCG PO QAM for 30 Days, MCG 12/27/24 Meclizine Hcl (Meclizine Hcl) 25 Mg Tab, 25 MG PO BIDP PRN for DIZZINESS for 30 Days, MG 12/27/24 Budesonide-Formoterol Fumarate (Breyna 160-4.5 Mcg/Act) 1 Aer Aer, 1 AER IN BID, AER 12/27/24 Tiotropium [place] Monohydrate (Spiriva Respimat) 1.25 Mcg/Act Aer, 1.25 MCG IN DAILY, AER 12/27/24 Naldemedine Tosylate (Symproic) 0.2 Mg Tab, 0.2 MG PO DAILY, TAB 12/27/24 Omeprazole (Gnp Omeprazole) 20 Mg Tab, 40 MG PO DAILY, TAB 12/27/24 Atorvastatin Calcium (Lipitor) 40 Mg Tab, 1 TAB PO HS, #90 TAB 1 Refill 12/27/24 Semaglutide (Ozempic) 2 Mg/3 Ml Inj, 1 MG SC QWEEKLY, INJ 12/27/24 Metformin Hydrochloride (Metformin Hcl) 850 Mg Tab, 1000 MG PO BID for 30 Days, MG 12/27/24 Pregabalin (Lyrica) 150 Mg Cap, 1 CAP PO TID, #60 CAP 5 Refills 12/27/24 Baclofen (Baclofen) 10 Mg Tab, 10 MG PO BID for 30 Days, MG 12/27/24 Hydrocodone-Acetaminophen (Hydrocodone Bitartrate/AC 10-325 mg) 1 Tab Tab, 1 TAB PO QID, TAB 12/27/24 Carvedilol (Carvedilol) 6.25 Mg Tab, 6.25 MG PO BID for 30 Days, MG 12/27/24 Amlodipine Besylate (Amlodipine Besylate) 5 Mg Tab, 10 MG PO DAILY for 30 Days, MG 12/27/24 Losartan Potassium (Losartan Potassium) 100 Mg Tab, 100 MG PO DAILY for 30 Days, MG 12/27/24 Current Medications Current Medications Medications (Trade) Dose Ordered Sig/Justine Route PRN Reason Start Time Stop Time Status Last Admin Azithromycin 250 ml @ 125 mls/hr DAILY@1900 IV 12/27/24 19:00 Carvedilol (Coreg Tablet) 12.5 mg Q12HR PO 12/26/24 22:00 12/27/24 11:02 Clonidine HCl (Catapres Tablet) 0.1 mg Q4HP PRN PO SBP>150 12/26/24 21:30 Levothyroxine Sodium (Synthroid Tablet) 100 mcg QAM@0600 PO 12/27/24 06:00 12/27/24 06:05 Atorvastatin Calcium (Lipitor) 20 mg HS PO 12/26/24 22:00 12/26/24 22:28 Ceftriaxone Sodium 50 ml @ 100 mls/hr DAILY@09 IV 12/27/24 09:00 12/27/24 10:56 Apixaban (Eliquis) 5 mg BID PO 12/26/24 22:00 12/27/24 11:01 Sodium Chloride (Saline Lock Ns) 10 ml Q8HR IV 12/26/24 22:00 12/27/24 14:22 Acetaminophen/ Hydrocodone Bitart ([place] 5/325MG Tab) 1 tab Q4HP PRN PO MODERATE PAIN (4-6 PAIN SCALE) 12/26/24 21:30 12/27/24 16:03 DC 12/27/24 13:37 Ondansetron HCl (Zofran) 4 mg Q4HP PRN IV NAUSEA / VOMITING 12/26/24 21:30 Docusate Sodium (Colace Capsule) 100 mg BIDPRN PRN PO FOR CONSTIPATION 12/26/24 21:30 Acetaminophen (Tylenol Tablet) 650 mg Q6HP PRN PO PAIN SCALE 1-3 OR TEMP>100.4 12/26/24 21:30 Guaifenesin/ Dextromethorphan (Robitussin-Dm Liquid) 10 ml Q6HPRN PRN PO COUGH 12/26/24 22:00 12/27/24 13:37 Nitroglycerin (Ntrostat Sublingual) 0.4 mg Q5MINP PRN SL FOR CHEST PAIN 12/26/24 22:15 Morphine Sulfate 2 mg Q30M PRN IV FOR CHEST PAIN 12/26/24 22:15 Albuterol (Ventolin Medneb) 2.5 mg Q4HPRN PRN NEB SHORTNESS OF BREATH 12/26/24 23:15 12/27/24 09:41 Ipratropium [place] (Atrovent Medneb) 0.5 mg Q4HPRN PRN NEB SHORTNESS OF BREATH 12/26/24 23:15 12/27/24 14:43 Amiodarone HCl (Cordarone Tablet) 400 mg Q12HR PO 12/27/24 10:15 12/27/24 11:01 Levalbuterol HCl (Xopenex Medneb) 0.625 mg Q6HWA NEB 12/27/24 18:00 Ipratropium [place] (Atrovent Medneb) 0.5 mg Q6HWA NEB 12/27/24 18:00 Zolpidem Tartrate (Ambien) 10 mg HSPRN PRN PO FOR INSOMNIA 12/27/24 22:00 Acetaminophen/ Hydrocodone Bitart ([place] 10/325MG Tab) 1 tab Q6HP PRN PO MODERATE PAIN (4-6 PAIN SCALE) 12/27/24 16:00 Amiodarone HCl 250 ml @ 16.66 mls/ hr Q15H1M IV 12/27/24 22:15 UNV Family History: Cardiovascular disease G8 MOTHER Colon cancer G8 FATHER FHx: kidney cancer G8 MOTHER Review of Systems Chest discomfort shortness of breath H&P Exam Vital Signs/I&O Vital Sign Date Time Temp Pulse Resp B/P (MAP) Pulse Ox O2 Delivery O2 Flow Rate FiO2 12/27/24 14:49 127 18 96 12/27/24 14:43 Nasal Cannula* 3 32 12/27/24 13:00 98.2 117/88 (98) 98.2 Intake and Output 12/26/24 12/27/24 19:00 07:00 Intake Total 1300 ml 400 ml Balance 1300 ml 400 ml Intake Oral 400 ml IV Total 1300 ml # Voids 2 Physical Exam Elderly male nonacute distress abdomen is soft Faint murmur Regular rate and rhythm Labs/Diagnostic Data Labs/Diagnostic Data Laboratory Tests Test 12/27/24 13:30 12/27/24 05:35 12/26/24 15:52 12/26/24 15:35 Range/Units Urine Color Light-yellow Yellow Urine Clarity Clear Clear Urine pH 6.0 5.0-9.0 Urine Specific [place] 1.015 1.001-1.035 Urine Protein Negative Negative Urine Ketones Negative Negative Urine Blood Negative Negative /uL Urine Nitrite Negative Negative Urine Bilirubin Negative Negative Urine Urobilinogen Normal Negative mg/dL Urine Leukocyte Esterase Negative Negative /uL Urine RBC 2 0 - 3 /hpf Urine Microscopic WBC 2 0-3 /HPF Urine Squamous Epithelial Cells Few <5 /hpf Urine Bacteria None seen None Seen /hpf Urine Glucose Normal Normal mg/dL White Blood Count 15.3 H 4.4-10.8 10^3/uL Red Blood Count 4.49 L 4.5-5.90 10^6/uL Hemoglobin 12.8 L 13.5-17.5 g/dL Hematocrit 38.1 L 41.0-53.0 % Mean Corpuscular Volume 85.0 80.0-100.0 fL Mean Corpuscular Hemoglobin 28.5 28.0-32.0 pg Mean Corpuscular Hemoglobin Concent 33.5 32.0-36.0 g/dL Red Cell Distribution Width 16.6 H 11.8-14.3 % Platelet Count 271 140-450 10^3/uL Mean Platelet Volume 8.8 6.9-10.8 fL Neutrophils (%) (Auto) 82.9 H 37.0-80.0 % Lymphocytes (%) (Auto) 9.9 L 10.0-50.0 % Monocytes (%) (Auto) 6.2 0.0-12.0 % Eosinophils (%) (Auto) 0.7 0.0-7.0 % Basophils (%) (Auto) 0.3 0.0-2.0 % Neutrophils # (Auto) 12.7 H 1.6-8.6 10 ^3/uL Lymphocytes # (Auto) 1.5 0.4-5.4 10 ^3/uL Monocytes # (Auto) 1.0 0-1.3 10 ^3/uL Eosinophils # (Auto) 0.1 0-0.8 10 ^3/uL Basophils # (Auto) 0 0-0.2 10 ^3/uL Nucleated Red Blood Cells 0.0 % Sodium Level 140 136-145 mmol/L Potassium Level 4.4 3.5-5.1 mmol/L Chloride Level 105 98-107 mmol/L Carbon Dioxide Level 25 20-31 mmol/L Anion Gap 10 5-15 Blood Urea Nitrogen 18 9-23 mg/dL Creatinine 1.32 H 0.700-1.30 mg/dL Glomerular Filtration Rate Calc 59 >90 mL/min BUN/Creatinine Ratio 13.6 10.0-20.0 Serum Glucose 109 H 74-106 mg/dL Calcium Level 8.6 L 8.7-10.4 mg/dL Total Bilirubin 1.1 H 0.2-1.0 mg/dL Aspartate Amino Transferase (AST) 15 13-40 U/L Alanine Aminotransferase (ALT) 10 7-40 U/L Alkaline Phosphatase 42 L 46-116 U/L Total Protein 7.0 5.7-8.2 g/dL Albumin 4.4 3.2-4.8 g/dL Troponin I High Sensitivity < 3 L </=54 ng/L Lactic Acid Level 2.0 0.4-2.0 mmol/L Test 12/26/24 14:45 Range/Units White Blood Count 15.1 H 4.4-10.8 10^3/uL Red Blood Count 4.65 4.5-5.90 10^6/uL Hemoglobin 13.3 L 13.5-17.5 g/dL Hematocrit 39.5 L 41.0-53.0 % Mean Corpuscular Volume 85.0 80.0-100.0 fL Mean Corpuscular Hemoglobin 28.5 28.0-32.0 pg Mean Corpuscular Hemoglobin Concent 33.6 32.0-36.0 g/dL Red Cell Distribution Width 16.7 H 11.8-14.3 % Platelet Count 297 140-450 10^3/uL Mean Platelet Volume 8.7 6.9-10.8 fL Neutrophils (%) (Auto) 84.7 H 37.0-80.0 % Lymphocytes (%) (Auto) 7.4 L 10.0-50.0 % Monocytes (%) (Auto) 7.7 0.0-12.0 % Eosinophils (%) (Auto) 0.1 0.0-7.0 % Basophils (%) (Auto) 0.1 0.0-2.0 % Neutrophils # (Auto) 12.8 H 1.6-8.6 10 ^3/uL Lymphocytes # (Auto) 1.1 0.4-5.4 10 ^3/uL Monocytes # (Auto) 1.2 0-1.3 10 ^3/uL Eosinophils # (Auto) 0 0-0.8 10 ^3/uL Basophils # (Auto) 0 0-0.2 10 ^3/uL Nucleated Red Blood Cells 0.0 % Sodium Level 140 136-145 mmol/L Potassium Level 4.3 3.5-5.1 mmol/L Chloride Level 103 98-107 mmol/L Carbon Dioxide Level 25 20-31 mmol/L Anion Gap 12 5-15 Blood Urea Nitrogen 22 9-23 mg/dL Creatinine 1.92 H 0.700-1.30 mg/dL Glomerular Filtration Rate Calc 38 >90 mL/min BUN/Creatinine Ratio 11.5 10.0-20.0 Serum Glucose 106 74-106 mg/dL Calcium Level 8.6 L 8.7-10.4 mg/dL Troponin I High Sensitivity < 3 L </=54 ng/L Thyroid Stimulating Hormone (TSH) 0.53 L 0.55-4.78 uIU/mL Assessment Acute kidney injury hemodynamically mediated Tachycardic contributing to hypotension recommend improve hemodynamics and maintain mean arterial pressure greater than 65 Ultrasound of the kidney Avoid contrast studies Urinalysis was unremarkable Strict Is&Os Chronic kidney disease- dr hobbs Chest pain and shortness of breath- No troponin elevation, chest x-ray shows possible signs of pneumonia Cardiology consultation Completed IV fluid hydration and now on IV antibiotics for community-acquired pneumonia Avoid nonsteroidal anti-inflammatory drugs Replace electrolytes based on hospital guidelines Low-salt cardiac diet Rest of care as per primary medical team Plan discussed with: Patient CANDIDO GARCES MD Dec 27, 2024 16:17
[2024-12-27] MEDS: AMIODARONE BOLUS KIT 100 ML IV ONE (17:00)
[2024-12-27] MEDS: LEVALBUTEROL HCL 1.25 MG/3 ML NEB NEB SCH (18:04)
[2024-12-27] MEDS: IPRATROPIUM BROM 0.5 MG/2.5ML INH SOL NEB SCH (18:04)
[2024-12-27] MEDS: AZITHROMYCIN 500MG/ 250ML 250 ML IV SCH (18:55)
[2024-12-27] MEDS: ONDANSETRON HCL 4 MG/2 ML VIAL IV PRN (20:14)
[2024-12-27] MEDS: HYALURONIDASE 150 UNIT/1 ML SUBCUT ONE (22:49)
[2024-12-27] MEDS: ZOLPIDEM TARTRATE 5 MG TAB PO PRN (23:00)
[2024-12-28] VITALS (15 sets, daily range): BP systolic 104–128; BP diastolic 64–95; PULSE 76–128; RESP 17–20; TEMP 97.4–98.7; O2SAT 92–99
[2024-12-28] MEDS: HYDROcodone-ACET 10/325MG TAB PO PRN (01:14)
[2024-12-28 06:00] LABS: Hematocrit 35.0 % (41.0-53.0); Hemoglobin 12.0 g/dL (13.5-17.5); Mean Corpuscular Hemoglobin 28.9 pg (28.0-32.0); Mean Corpuscular Volume 84.3 fL (80.0-100.0); Nucleated Red Blood Cells % 0.0 %
[2024-12-28 06:06] LABS: Chloride 102 mmol/L (98-107); Potassium 3.9 mmol/L (3.5-5.1); Sodium 140 mmol/L (136-145)
[2024-12-28 06:07] LABS: Anion Gap 12 (5-15); Carbon Dioxide 26 mmol/L (20-31)
[2024-12-28 06:12] LABS: BUN/Creatinine Ratio 6.2 (10.0-20.0); Blood Urea Nitrogen 7 mg/dL (9-23); Calcium 8.3 mg/dL (8.7-10.4); Glucose 90 mg/dL (74-106)
[2024-12-28] MEDS: AMIODARONE HCL 200 MG TAB PO SCH (09:05)
--- NOTE | 2024-12-28 09:48 | DVHPN2 ---
Progress Note Date Seen: Dec 28, 2024 Medical Necessity Reason Pt with a Central, PICC or Fol: No Objective vital signs Vital Sign Date Time Temp Pulse Resp B/P (MAP) Pulse Ox O2 Delivery O2 Flow Rate FiO2 12/28/24 09:06 126 128/95 12/28/24 08:33 97.7 19 94 97.7 12/27/24 20:00 Nasal Cannula* 3 32 Total Intake and Output 12/27/24 12/27/24 12/28/24 15:00 23:00 07:00 Intake Total 700 ml 450 ml Balance 700 ml 450 ml medications Current Medications Medications Dose Ordered Sig/Justine Route Start Time Stop Time Status Last Admin Dose Admin Azithromycin 250 ml @ 125 mls/hr DAILY@1900 IV 12/27/24 19:00 12/27/24 18:55 125 MLS/HR Carvedilol 12.5 mg Q12HR PO 12/26/24 22:00 12/28/24 09:06 12.5 MG Clonidine HCl 0.1 mg Q4HP PRN PO 12/26/24 21:30 Levothyroxine Sodium 100 mcg QAM@0600 PO 12/27/24 06:00 12/28/24 05:35 100 MCG Atorvastatin Calcium 20 mg HS PO 12/26/24 22:00 12/27/24 21:48 20 MG Ceftriaxone Sodium 50 ml @ 100 mls/hr DAILY@09 IV 12/27/24 09:00 12/28/24 08:22 100 MLS/HR Apixaban 5 mg BID PO 12/26/24 22:00 12/28/24 09:05 5 MG Sodium Chloride 10 ml Q8HR IV 12/26/24 22:00 12/28/24 05:35 10 ML Ondansetron HCl 4 mg Q4HP PRN IV 12/26/24 21:30 12/28/24 08:22 4 MG Docusate Sodium 100 mg BIDPRN PRN PO 12/26/24 21:30 Acetaminophen 650 mg Q6HP PRN PO 12/26/24 21:30 Guaifenesin/ Dextromethorphan 10 ml Q6HPRN PRN PO 12/26/24 22:00 12/27/24 13:37 10 ML Nitroglycerin 0.4 mg Q5MINP PRN SL 12/26/24 22:15 Morphine Sulfate 2 mg Q30M PRN IV 12/26/24 22:15 Albuterol 2.5 mg Q4HPRN PRN NEB 12/26/24 23:15 12/27/24 09:41 2.5 MG Ipratropium [place] 0.5 mg Q4HPRN PRN NEB 12/26/24 23:15 12/27/24 14:43 0.5 MG Levalbuterol HCl 0.625 mg Q6HWA NEB 12/27/24 18:00 12/28/24 06:36 0.625 MG Ipratropium [place] 0.5 mg Q6HWA NEB 12/27/24 18:00 12/28/24 06:36 0.5 MG Zolpidem Tartrate 10 mg HSPRN PRN PO 12/27/24 22:00 12/27/24 23:00 10 MG Acetaminophen/ Hydrocodone Bitart 1 tab Q6HP PRN PO 12/27/24 16:00 12/28/24 08:20 1 TAB Amiodarone HCl 400 mg Q12HR PO 12/28/24 10:00 12/28/24 09:05 400 MG laboratory and microbiology Laboratory Tests 12/28/24 04:46 Test 12/28/24 04:46 Range/Units Serum Glucose 90 74-106 mg/dL Microbiology Date/Time Source Procedure Growth Status 12/26/24 15:52 Blood Blood Culture - Preliminary NO GROWTH AFTER 24 HOURS OF INCUBATION. Resulted Problem List/Assessment/Plan Problem List/Assessment/Plan Acute kidney injury hemodynamically mediated hanny hypotension induced from afib/aflutter Tachycardic contributing to hypotension recommend improve hemodynamics and maintain mean arterial pressure greater than 65 Avoid contrast studies Urinalysis was unremarkable Strict Is&Os HANNY resolving Chronic kidney disease- dr hobbs stage II afib Chest pain and shortness of breath- No troponin elevation, chest x-ray shows possible signs of pneumonia Cardiology consultation Completed IV fluid hydration and now on IV antibiotics for community-acquired pneumonia Avoid nonsteroidal anti-inflammatory drugs Replace electrolytes based on hospital guidelines Low-salt cardiac diet Rest of care as per primary medical team stable from renal standpoint to f/u in renal clinic with Dr Hobbs Plan discussed with: Patient My Orders My Orders Orders - CANDIDO GARCES MD Procedure Category Date Status Time *[facility] CONS 12/27/24 Transmitted -[place] 15:40 CANDIDO GARCES MD Dec 28, 2024 09:48
[2024-12-28] MEDS: MUPIROCIN 2% OINT 15gm or 22gm FOR MRSA NARES EACHNOSTRI SCH (21:29)
--- NOTE | 2024-12-28 22:45 | DVHPN2 ---
Subjective The patient seen and examined at bedside. Complains of heart palpitation. Reviewed: Care Plan, H&P, Labs, Medications, Previous Orders, Radiology Changes from previous H/P or p: No Changes Eyes: No Pain, No Vision change, No Conjunctivae inflammation, No Eyelid inflammation, No Other, No Redness ENT: No Ear pain, No Ear discharge, No Nose pain, No Nose discharge, No Nose congestion, No Mouth pain, No Mouth swelling, No Throat pain, No Throat swelling, No Other Cardiovascular: Chest Pain; No Palpitations, No Orthopnea, No Paroxysmal Noc. Dyspnea, No Edema, No Lt Headedness, No Other Respiratory: No Cough, No Dry; Shortness of breath; No SOB with excertion, No Wheezing, No Hemoptysis, No Pleuritic Pain, No Sputum; Other (SOB at rest) Gastrointestinal: Nausea, Vomiting; No Abdominal Pain, No Diarrhea, No Constipation, No Melena, No Hematochezia, No Other Genitourinary: No Dysuria, No Frequency, No Incontinence, No Hematuria, No Retention, No Other Musculoskeletal: No other, No neck pain, No shoulder pain, No arm pain, No back pain, No hand pain, No leg pain, No foot pain Objective Vitals Vital Signs Date Time Temp Pulse Resp B/P (MAP) Pulse Ox O2 Delivery O2 Flow Rate FiO2 12/28/24 22:22 72 100/70 12/28/24 21:00 98.7 18 95 98.7 12/28/24 20:00 Nasal Cannula* 3 32 Intake/Output Intake and Output 12/28/24 07:00 Intake Total 1150 ml Balance 1150 ml Intake Oral 900 ml IV Total 250 ml # Voids 5 # Bowel Movements 1 General Appearance: Alert, Oriented X3, Cooperative, No acute distress HEENT: Atraumatic, PERRLA, EOMI, Mucous membr. moist/pink Neck: Supple Lungs: Clear to auscultation, Normal air movement Cardiovascular: Regular rate, Normal S1, Normal S2, No murmurs, Gallops, Rubs Abdomen: Normal bowel sounds, Soft, No tenderness Neuro: Cranial nerves 3-12 NL Psych/Mental Status: Mental status NL Medications Current Medications Medications Dose Ordered Sig/Justine Route Start Time Stop Time Status Last Admin Dose Admin Azithromycin 250 ml @ 125 mls/hr DAILY@1900 IV 12/27/24 19:00 12/28/24 17:39 125 MLS/HR Carvedilol 12.5 mg Q12HR PO 12/26/24 22:00 12/28/24 21:22 12.5 MG Clonidine HCl 0.1 mg Q4HP PRN PO 12/26/24 21:30 Levothyroxine Sodium 100 mcg QAM@0600 PO 12/27/24 06:00 12/28/24 05:35 100 MCG Atorvastatin Calcium 20 mg HS PO 12/26/24 22:00 12/28/24 21:22 20 MG Ceftriaxone Sodium 50 ml @ 100 mls/hr DAILY@09 IV 12/27/24 09:00 12/28/24 08:22 100 MLS/HR Apixaban 5 mg BID PO 12/26/24 22:00 12/28/24 21:22 5 MG Sodium Chloride 10 ml Q8HR IV 12/26/24 22:00 12/28/24 21:30 10 ML Ondansetron HCl 4 mg Q4HP PRN IV 12/26/24 21:30 12/28/24 14:24 4 MG Docusate Sodium 100 mg BIDPRN PRN PO 12/26/24 21:30 Acetaminophen 650 mg Q6HP PRN PO 12/26/24 21:30 Guaifenesin/ Dextromethorphan 10 ml Q6HPRN PRN PO 12/26/24 22:00 12/28/24 21:20 10 ML Nitroglycerin 0.4 mg Q5MINP PRN SL 12/26/24 22:15 Morphine Sulfate 2 mg Q30M PRN IV 12/26/24 22:15 Albuterol 2.5 mg Q4HPRN PRN NEB 12/26/24 23:15 12/27/24 09:41 2.5 MG Ipratropium [place] 0.5 mg Q4HPRN PRN NEB 12/26/24 23:15 12/27/24 14:43 0.5 MG Levalbuterol HCl 0.625 mg Q6HWA NEB 12/27/24 18:00 12/28/24 18:57 0.625 MG Ipratropium [place] 0.5 mg Q6HWA NEB 12/27/24 18:00 12/28/24 18:57 0.5 MG Zolpidem Tartrate 10 mg HSPRN PRN PO 12/27/24 22:00 12/28/24 21:22 10 MG Acetaminophen/ Hydrocodone Bitart 1 tab Q6HP PRN PO 12/27/24 16:00 12/28/24 20:05 1 TAB Amiodarone HCl 400 mg Q12HR PO 12/28/24 10:00 12/28/24 21:21 400 MG Mupirocin 1 applic BID EACHNOSTRI 12/28/24 22:00 01/02/25 21:59 12/28/24 21:29 1 APPLIC Laboratory Results Laboratory Tests 12/28/24 04:46 Chemistry Test 12/28/24 04:46 Calcium Level 8.3 mg/dL (8.7-10.4) L Urinalysis Test 12/27/24 13:30 Urine Color Light-yellow (Yellow) Urine Clarity Clear (Clear) Urine pH 6.0 (5.0-9.0) Urine Specific [place] 1.015 (1.001-1.035) Urine Protein Negative (Negative) Urine Ketones Negative (Negative) Urine Blood Negative /uL (Negative) Urine Nitrite Negative (Negative) Urine Bilirubin Negative (Negative) Urine Urobilinogen Normal mg/dL (Negative) Urine Leukocyte Esterase Negative /uL (Negative) Urine RBC 2 /hpf (0 - 3) Urine Microscopic WBC 2 /HPF (0-3) Urine Squamous Epithelial Cells Few /hpf (<5) Urine Bacteria None seen /hpf (None Seen) Urine Glucose Normal mg/dL (Normal) Microbiology Microbiology Date/Time Source Procedure Growth Status 12/27/24 06:55 Nose MRSA Screen - Final Methicillin Resistant S.aureus Complete 12/26/24 15:52 Blood Blood Culture - Preliminary NO GROWTH AFTER 48 HOURS OF INCUBATION. Resulted Labs and/or images reviewed: Labs reviewed by me Assessment/Plan Assessment/Plan Acute chest pain Acute renal injury Atrial fibrillation with RVR Leukocytosis, unspecified Pneumonia, unspecified organism HTN DM type 2 COPD Generalized weakness COntinue current management Continue with SSI Continue with HTN meds I will start patient on amiodarone drip Continue Coreg. Waiting for ammonium nitrate crystallizer, Dr Gamboa to see the patient. Plan discussed with: Patient My Orders Orders - STEFANY NEW MD Procedure Category Date Status Time Electrocardigram EKG 12/28/24 Logged 07:50 Electrocardigram EKG 12/28/24 Logged 07:51 Electrocardigram EKG 12/28/24 Logged 16:08 Electrocardigram EKG 12/28/24 Logged 16:07 Mupirocin 2% Oint PHA 12/28/24 In Process Mrsa Nares (Bactroban 22:00 Chest Portable XY 12/29/24 Logged 07:00 Date of Service: Dec 27, 2024 Billing Provider: STEFANY NEW MD Common Visit Codes: [id number] INP/OBS CARE(HIGH) STEFANY NEW MD Dec 28, 2024 22:45
--- NOTE | 2024-12-28 22:46 | DVHPN2 ---
Subjective The patient seen and examined at bedside. Complains of heart palpitation. Reviewed: Care Plan, H&P, Labs, Medications, Previous Orders, Radiology Changes from previous H/P or p: No Changes Eyes: No Pain, No Vision change, No Conjunctivae inflammation, No Eyelid inflammation, No Other, No Redness ENT: No Ear pain, No Ear discharge, No Nose pain, No Nose discharge, No Nose congestion, No Mouth pain, No Mouth swelling, No Throat pain, No Throat swelling, No Other Cardiovascular: Chest Pain; No Palpitations, No Orthopnea, No Paroxysmal Noc. Dyspnea, No Edema, No Lt Headedness, No Other Respiratory: No Cough, No Dry; Shortness of breath; No SOB with excertion, No Wheezing, No Hemoptysis, No Pleuritic Pain, No Sputum; Other (SOB at rest) Gastrointestinal: Nausea, Vomiting; No Abdominal Pain, No Diarrhea, No Constipation, No Melena, No Hematochezia, No Other Genitourinary: No Dysuria, No Frequency, No Incontinence, No Hematuria, No Retention, No Other Musculoskeletal: No other, No neck pain, No shoulder pain, No arm pain, No back pain, No hand pain, No leg pain, No foot pain Objective Vitals Vital Signs Date Time Temp Pulse Resp B/P (MAP) Pulse Ox O2 Delivery O2 Flow Rate FiO2 12/28/24 22:22 72 100/70 12/28/24 21:00 98.7 18 95 98.7 12/28/24 20:00 Nasal Cannula* 3 32 Intake/Output Intake and Output 12/28/24 07:00 Intake Total 1150 ml Balance 1150 ml Intake Oral 900 ml IV Total 250 ml # Voids 5 # Bowel Movements 1 General Appearance: Alert, Oriented X3, Cooperative, No acute distress HEENT: Atraumatic, PERRLA, EOMI, Mucous membr. moist/pink Neck: Supple Lungs: Clear to auscultation, Normal air movement Cardiovascular: Regular rate, Normal S1, Normal S2, No murmurs, Gallops, Rubs Abdomen: Normal bowel sounds, Soft, No tenderness Neuro: Cranial nerves 3-12 NL Psych/Mental Status: Mental status NL Medications Current Medications Medications Dose Ordered Sig/Justine Route Start Time Stop Time Status Last Admin Dose Admin Azithromycin 250 ml @ 125 mls/hr DAILY@1900 IV 12/27/24 19:00 12/28/24 17:39 125 MLS/HR Carvedilol 12.5 mg Q12HR PO 12/26/24 22:00 12/28/24 21:22 12.5 MG Clonidine HCl 0.1 mg Q4HP PRN PO 12/26/24 21:30 Levothyroxine Sodium 100 mcg QAM@0600 PO 12/27/24 06:00 12/28/24 05:35 100 MCG Atorvastatin Calcium 20 mg HS PO 12/26/24 22:00 12/28/24 21:22 20 MG Ceftriaxone Sodium 50 ml @ 100 mls/hr DAILY@09 IV 12/27/24 09:00 12/28/24 08:22 100 MLS/HR Apixaban 5 mg BID PO 12/26/24 22:00 12/28/24 21:22 5 MG Sodium Chloride 10 ml Q8HR IV 12/26/24 22:00 12/28/24 21:30 10 ML Ondansetron HCl 4 mg Q4HP PRN IV 12/26/24 21:30 12/28/24 14:24 4 MG Docusate Sodium 100 mg BIDPRN PRN PO 12/26/24 21:30 Acetaminophen 650 mg Q6HP PRN PO 12/26/24 21:30 Guaifenesin/ Dextromethorphan 10 ml Q6HPRN PRN PO 12/26/24 22:00 12/28/24 21:20 10 ML Nitroglycerin 0.4 mg Q5MINP PRN SL 12/26/24 22:15 Morphine Sulfate 2 mg Q30M PRN IV 12/26/24 22:15 Albuterol 2.5 mg Q4HPRN PRN NEB 12/26/24 23:15 12/27/24 09:41 2.5 MG Ipratropium [place] 0.5 mg Q4HPRN PRN NEB 12/26/24 23:15 12/27/24 14:43 0.5 MG Levalbuterol HCl 0.625 mg Q6HWA NEB 12/27/24 18:00 12/28/24 18:57 0.625 MG Ipratropium [place] 0.5 mg Q6HWA NEB 12/27/24 18:00 12/28/24 18:57 0.5 MG Zolpidem Tartrate 10 mg HSPRN PRN PO 12/27/24 22:00 12/28/24 21:22 10 MG Acetaminophen/ Hydrocodone Bitart 1 tab Q6HP PRN PO 12/27/24 16:00 12/28/24 20:05 1 TAB Amiodarone HCl 400 mg Q12HR PO 12/28/24 10:00 12/28/24 21:21 400 MG Mupirocin 1 applic BID EACHNOSTRI 12/28/24 22:00 01/02/25 21:59 12/28/24 21:29 1 APPLIC Laboratory Results Laboratory Tests 12/28/24 04:46 Chemistry Test 12/28/24 04:46 Calcium Level 8.3 mg/dL (8.7-10.4) L Urinalysis Test 12/27/24 13:30 Urine Color Light-yellow (Yellow) Urine Clarity Clear (Clear) Urine pH 6.0 (5.0-9.0) Urine Specific [place] 1.015 (1.001-1.035) Urine Protein Negative (Negative) Urine Ketones Negative (Negative) Urine Blood Negative /uL (Negative) Urine Nitrite Negative (Negative) Urine Bilirubin Negative (Negative) Urine Urobilinogen Normal mg/dL (Negative) Urine Leukocyte Esterase Negative /uL (Negative) Urine RBC 2 /hpf (0 - 3) Urine Microscopic WBC 2 /HPF (0-3) Urine Squamous Epithelial Cells Few /hpf (<5) Urine Bacteria None seen /hpf (None Seen) Urine Glucose Normal mg/dL (Normal) Microbiology Microbiology Date/Time Source Procedure Growth Status 12/27/24 06:55 Nose MRSA Screen - Final Methicillin Resistant S.aureus Complete 12/26/24 15:52 Blood Blood Culture - Preliminary NO GROWTH AFTER 48 HOURS OF INCUBATION. Resulted Assessment/Plan Assessment/Plan Acute chest pain Acute renal injury Atrial fibrillation with RVR Leukocytosis, unspecified Pneumonia, unspecified organism HTN DM type 2 COPD Generalized weakness COntinue current management Continue with SSI Continue with HTN meds Amiodarone was switch to oral per his educational aide to 400mg bid Continue Coreg. Waiting for educational aide, Dr Gamboa to see the patient. Plan discussed with: Patient My Orders Orders - STEFANY NEW MD Procedure Category Date Status Time Electrocardigram EKG 12/28/24 Logged 07:50 Electrocardigram EKG 12/28/24 Logged 07:51 Electrocardigram EKG 12/28/24 Logged 16:08 Electrocardigram EKG 12/28/24 Logged 16:07 Mupirocin 2% Oint PHA 12/28/24 In Process Mrsa Nares (Bactroban 22:00 Chest Portable XY 12/29/24 Logged 07:00 Date of Service: Dec 28, 2024 Billing Provider: STEFANY NEW MD Common Visit Codes: [id number] INP/OBS CARE(HIGH) STEFANY ENW MD Dec 28, 2024 22:46
[2024-12-29] VITALS (14 sets, daily range): BP systolic 111–151; BP diastolic 73–99; PULSE 72–82; RESP 14–20; TEMP 97.7–98.4; O2SAT 91–100
--- NOTE | 2024-12-29 05:29 | DVH ---
CHEST RADIOGRAPH Indication: sob Technique: Single frontal view of the chest was obtained Comparison: XY CHEST PORTABLE on DOS: 12/26/24 FINDINGS: Lines and Tubes: None Lungs: Increased interstitial prominence. Left upper and lower lobe opacity noted. Pleura: No effusion. No pneumothorax. Cardiomediastinal contours: Unremarkable Bones: No acute osseous abnormality. ACDF. IMPRESSION: 1. Increased interstitial prominence with left upper and lower lobe opacity suspicious for pneumonia. Findings are similar to prior study.
[2024-12-29 06:56] LABS: Hematocrit 31.5 % (41.0-53.0); Hemoglobin 11.1 g/dL (13.5-17.5); Mean Corpuscular Hemoglobin 29.6 pg (28.0-32.0); Mean Corpuscular Volume 83.8 fL (80.0-100.0); Nucleated Red Blood Cells % 0.0 %
[2024-12-29 07:13] LABS: Anion Gap 11 (5-15); Carbon Dioxide 27 mmol/L (20-31); Chloride 103 mmol/L (98-107); Potassium 4.1 mmol/L (3.5-5.1); Sodium 141 mmol/L (136-145)
[2024-12-29 07:15] LABS: Calcium 8.0 mg/dL (8.7-10.4)
[2024-12-29 07:19] LABS: Glucose 82 mg/dL (74-106)
[2024-12-29 07:21] LABS: BUN/Creatinine Ratio 4.8 (10.0-20.0); Blood Urea Nitrogen < 5 mg/dL (9-23)
--- NOTE | 2024-12-29 07:26 | ECG ---
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
--- NOTE | 2024-12-29 07:26 | ECG ---
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
--- NOTE | 2024-12-29 07:34 | ECG ---
[facility] Test Date: 2024-12-28 Test Time: 07:51:23 Pat Name: ORALIA MATAMOROS Department: Room: 0209T A Gender: M Health Care Attorney: esequiel : 1960 Requested By: STEFANY NEW Order Number: [id number] Reading MD: Faustino Uribe Measurements Intervals [place] Rate: 125 P: 257 AR: 177 QRS: -63 QRSD: 100 T: 146 QT: 277 QTc: 400 Interpretive Statements Sinus or ectopic atrial tachycardia Left axis deviation Low voltage, extremity leads Repol abnrm suggests ischemia, diffuse leads Electronically Signed On 12-30-2024 13:07:59 PST by Faustino Uribe Please click the below link to view image of tracing.
--- NOTE | 2024-12-29 07:35 | ECG ---
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
--- NOTE | 2024-12-29 07:35 | ECG ---
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
--- NOTE | 2024-12-29 10:31 | DVHPN2 ---
Reviewed: Care Plan, H&P, Labs, Medications, Previous Orders, Radiology Changes from previous H/P or p: No Changes Eyes: No Pain, No Vision change, No Conjunctivae inflammation, No Eyelid inflammation, No Other, No Redness ENT: No Ear pain, No Ear discharge, No Nose pain, No Nose discharge, No Nose congestion, No Mouth pain, No Mouth swelling, No Throat pain, No Throat swelling, No Other Cardiovascular: Chest Pain; No Palpitations, No Orthopnea, No Paroxysmal Noc. Dyspnea, No Edema, No Lt Headedness, No Other Respiratory: No Cough, No Dry; Shortness of breath; No SOB with excertion, No Wheezing, No Hemoptysis, No Pleuritic Pain, No Sputum; Other (SOB at rest) Gastrointestinal: Nausea, Vomiting; No Abdominal Pain, No Diarrhea, No Constipation, No Melena, No Hematochezia, No Other Genitourinary: No Dysuria, No Frequency, No Incontinence, No Hematuria, No Retention, No Other Musculoskeletal: No other, No neck pain, No shoulder pain, No arm pain, No back pain, No hand pain, No leg pain, No foot pain Objective Vitals Vital Signs Date Time Temp Pulse Resp B/P (MAP) Pulse Ox O2 Delivery O2 Flow Rate FiO2 12/29/24 09:58 74 121/83 12/29/24 08:42 98.3 20 93 98.3 12/29/24 06:21 Nasal Cannula* 2 28 Intake/Output Intake and Output 12/29/24 07:00 Intake Total 1500 ml Balance 1500 ml Intake Oral 1200 ml IV Total 300 ml # Voids 6 # Bowel Movements 2 General Appearance: Alert, Oriented X3, Cooperative, No acute distress HEENT: Atraumatic, PERRLA, EOMI, Mucous membr. moist/pink Neck: Supple Lungs: Clear to auscultation, Normal air movement Cardiovascular: Regular rate, Normal S1, Normal S2, No murmurs, Gallops, Rubs Abdomen: Normal bowel sounds, Soft, No tenderness Neuro: Cranial nerves 3-12 NL Psych/Mental Status: Mental status NL Medications Current Medications Medications Dose Ordered Sig/Justine Route Start Time Stop Time Status Last Admin Dose Admin Azithromycin 250 ml @ 125 mls/hr DAILY@1900 IV 12/27/24 19:00 12/28/24 17:39 125 MLS/HR Carvedilol 12.5 mg Q12HR PO 12/26/24 22:00 12/29/24 09:58 12.5 MG Clonidine HCl 0.1 mg Q4HP PRN PO 12/26/24 21:30 Levothyroxine Sodium 100 mcg QAM@0600 PO 12/27/24 06:00 12/29/24 05:40 100 MCG Atorvastatin Calcium 20 mg HS PO 12/26/24 22:00 12/28/24 21:22 20 MG Ceftriaxone Sodium 50 ml @ 100 mls/hr DAILY@09 IV 12/27/24 09:00 12/29/24 08:55 100 MLS/HR Apixaban 5 mg BID PO 12/26/24 22:00 12/29/24 09:58 5 MG Sodium Chloride 10 ml Q8HR IV 12/26/24 22:00 12/29/24 05:40 10 ML Ondansetron HCl 4 mg Q4HP PRN IV 12/26/24 21:30 12/29/24 09:57 4 MG Docusate Sodium 100 mg BIDPRN PRN PO 12/26/24 21:30 Acetaminophen 650 mg Q6HP PRN PO 12/26/24 21:30 Guaifenesin/ Dextromethorphan 10 ml Q6HPRN PRN PO 12/26/24 22:00 12/29/24 09:55 10 ML Nitroglycerin 0.4 mg Q5MINP PRN SL 12/26/24 22:15 Morphine Sulfate 2 mg Q30M PRN IV 12/26/24 22:15 Albuterol 2.5 mg Q4HPRN PRN NEB 12/26/24 23:15 12/27/24 09:41 2.5 MG Ipratropium [place] 0.5 mg Q4HPRN PRN NEB 12/26/24 23:15 12/27/24 14:43 0.5 MG Levalbuterol HCl 0.625 mg Q6HWA NEB 12/27/24 18:00 12/29/24 06:18 0.625 MG Ipratropium [place] 0.5 mg Q6HWA NEB 12/27/24 18:00 12/29/24 06:18 0.5 MG Zolpidem Tartrate 10 mg HSPRN PRN PO 12/27/24 22:00 12/28/24 21:22 10 MG Acetaminophen/ Hydrocodone Bitart 1 tab Q6HP PRN PO 12/27/24 16:00 12/29/24 09:56 1 TAB Amiodarone HCl 400 mg Q12HR PO 12/28/24 10:00 12/29/24 09:58 400 MG Mupirocin 1 applic BID EACHNOSTRI 12/28/24 22:00 01/02/25 21:59 12/29/24 09:54 1 APPLIC Laboratory Results Laboratory Tests 12/29/24 04:56 Chemistry Test 12/29/24 04:56 Calcium Level 8.0 mg/dL (8.7-10.4) L Urinalysis Test 12/27/24 13:30 Urine Color Light-yellow (Yellow) Urine Clarity Clear (Clear) Urine pH 6.0 (5.0-9.0) Urine Specific [place] 1.015 (1.001-1.035) Urine Protein Negative (Negative) Urine Ketones Negative (Negative) Urine Blood Negative /uL (Negative) Urine Nitrite Negative (Negative) Urine Bilirubin Negative (Negative) Urine Urobilinogen Normal mg/dL (Negative) Urine Leukocyte Esterase Negative /uL (Negative) Urine RBC 2 /hpf (0 - 3) Urine Microscopic WBC 2 /HPF (0-3) Urine Squamous Epithelial Cells Few /hpf (<5) Urine Bacteria None seen /hpf (None Seen) Urine Glucose Normal mg/dL (Normal) Microbiology Microbiology Date/Time Source Procedure Growth Status 12/27/24 06:55 Nose MRSA Screen - Final Methicillin Resistant S.aureus Complete 12/26/24 15:52 Blood Blood Culture - Preliminary NO GROWTH AFTER 48 HOURS OF INCUBATION. Resulted Labs and/or images reviewed: Labs reviewed by me, Image(s) reviewed by me Assessment/Plan Assessment/Plan Acute chest pain troponin negative x3, consult for patient's robot technician Dr. Shelby Acute renal injury Atrial fibrillation with RVR amiodarone new onset Leukocytosis, unspecified Pneumonia, Gram-positive versus gm neg: Rocephin azithromycin HTN DM type 2: Insulin sliding scale COPD Generalized weakness Per patient he was seen in [facility] 12/13/2024 Time spent 60 minutes Plan discussed with: Patient Date of Service: Dec 29, 2024 Billing Provider: CHARLIE ROSENTHAL MD Common Visit Codes: [id number] INP/OBS CARE(HIGH) CHARLIE ROSENTHAL MD Dec 29, 2024 10:31
--- NOTE | 2024-12-29 16:22 | DVHPN2 ---
Progress Note - Dictate Date Seen: Dec 29, 2024 Medical Necessity Reason Pt with a Central, PICC or Fol: No Subjective [T WITH SIGN SX COMPLEX OF AFIB RVR PNEUMONITIS LEUKOCYTOSIS CHECT PAIN HOWEVER TROPONIN NEGATIVE CXR CONSISTENT WITH PNEUMONIA ECHO NL EF STRESS CARDIOLITE NL PERFUSION PMH ORGANIC HD HTN TYPE II DM VASCULOPATHY NEUROPATHY NEPHROPATHY COPD vital signs Vital Sign Date Time Temp Pulse Resp B/P (MAP) Pulse Ox O2 Delivery O2 Flow Rate FiO2 12/29/24 12:30 98.1 74 20 131/95 (107) 95 98.1 12/29/24 10:00 Room Air* 2 N/A Nasal Cannula* Total Intake and Output 12/28/24 12/28/24 12/29/24 15:00 23:00 07:00 Intake Total 50 ml 1050 ml 400 ml Balance 50 ml 1050 ml 400 ml medications Current Medications Medications Dose Ordered Sig/Justine Route Start Time Stop Time Status Last Admin Dose Admin Azithromycin 250 ml @ 125 mls/hr DAILY@1900 IV 12/27/24 19:00 12/28/24 17:39 125 MLS/HR Carvedilol 12.5 mg Q12HR PO 12/26/24 22:00 12/29/24 09:58 12.5 MG Clonidine HCl 0.1 mg Q4HP PRN PO 12/26/24 21:30 Levothyroxine Sodium 100 mcg QAM@0600 PO 12/27/24 06:00 12/29/24 05:40 100 MCG Atorvastatin Calcium 20 mg HS PO 12/26/24 22:00 12/28/24 21:22 20 MG Ceftriaxone Sodium 50 ml @ 100 mls/hr DAILY@09 IV 12/27/24 09:00 12/29/24 08:55 100 MLS/HR Apixaban 5 mg BID PO 12/26/24 22:00 12/29/24 09:58 5 MG Sodium Chloride 10 ml Q8HR IV 12/26/24 22:00 12/29/24 13:15 10 ML Ondansetron HCl 4 mg Q4HP PRN IV 12/26/24 21:30 12/29/24 09:57 4 MG Docusate Sodium 100 mg BIDPRN PRN PO 12/26/24 21:30 Acetaminophen 650 mg Q6HP PRN PO 12/26/24 21:30 Guaifenesin/ Dextromethorphan 10 ml Q6HPRN PRN PO 12/26/24 22:00 12/29/24 09:55 10 ML Nitroglycerin 0.4 mg Q5MINP PRN SL 12/26/24 22:15 Morphine Sulfate 2 mg Q30M PRN IV 12/26/24 22:15 Albuterol 2.5 mg Q4HPRN PRN NEB 12/26/24 23:15 12/27/24 09:41 2.5 MG Ipratropium [place] 0.5 mg Q4HPRN PRN NEB 12/26/24 23:15 12/27/24 14:43 0.5 MG Levalbuterol HCl 0.625 mg Q6HWA NEB 12/27/24 18:00 12/29/24 11:30 0.625 MG Ipratropium [place] 0.5 mg Q6HWA NEB 12/27/24 18:00 12/29/24 11:30 0.5 MG Zolpidem Tartrate 10 mg HSPRN PRN PO 12/27/24 22:00 12/28/24 21:22 10 MG Acetaminophen/ Hydrocodone Bitart 1 tab Q6HP PRN PO 12/27/24 16:00 12/29/24 09:56 1 TAB Amiodarone HCl 400 mg Q12HR PO 12/28/24 10:00 12/29/24 09:58 400 MG Mupirocin 1 applic BID EACHNOSTRI 12/28/24 22:00 01/02/25 21:59 12/29/24 09:54 1 APPLIC laboratory and microbiology Laboratory Tests 12/29/24 04:56 Test 12/29/24 04:56 Range/Units Serum Glucose 82 74-106 mg/dL Problem List AFIB RVR PNEUMONITIS LEUKOCYTOSIS CHECT PAIN HOWEVER TROPONIN NEGATIVE CXR CONSISTENT WITH PNEUMONIA ECHO NL EF STRESS CARDIOLITE NL PERFUSION PMH ORGANIC HD HTN TYPE II DM VASCULOPATHY NEUROPATHY NEPHROPATHY COPD Assessment/Plan AMIODARONE ONCE PNEUMONIA ADEQUATELY TREATED MAY DC HOME WILL DC AMIODARONE OUTPATIENT ANTICOAG FOR NOW Plan discussed with: Patient KAROLYN BOSS MD Dec 29, 2024 16:21
--- NOTE | 2024-12-29 20:15 | DVHSR ---
APPROVED REPORT EXAM: Two-dimensional and M-mode echocardiogram with Doppler and color Doppler. Blood Pressure: 121/83 mmHg INDICATION new onset afib RISK FACTORS Height: 6'1, Weight: 229 DIMENSIONS LVDd5.9 (3.8-5.7cm)LA (2D)3.6 (1.9-4.0cm)Aortic Root3.7 (2.0-3.7cm) LVDs4.3 (2.5-4.0cm)LA (MM) (1.9-4.0cm)Aortic Cusp Exc1.2 (1.5-2.0cm) EF (%) 52.3 (55-70%)Rt. Atrium4.4 (1.9-4.0cm)Asc. Aorta4.0 cm IVSd0.7 (0.7-1.1cm)RV (D)4.0 (1.8-2.4cm) PWd1.0 (0.7-1.1cm) Mitral Valve MitralMitral Stenosis E wave0.79m/sMV Mean GR.mmHg A wave0.52m/sMV Peak GR.114mmHg E/A ratio1.52D MVAcm2 DECEL [id number] 1/2 Timems Aortic Valve Aortic ValveAortic Stenosis V11.27m/Ian Mean GR.5mmHg V21.47m/Ian Peak GR.9mmHg LVOT Diameter2.4 (1.8-2.4cm)Doppler AVA3.91cm2 Pulmonic Valve V21.10m/s Tricuspid Valve TR Velocity2.73m/s [id number] Conclusion LV EF IS 55% MODERATELY DILATED RV AND RA MODERATE DEGREE MR NORMAL VALVES NO EFFUSION MILD PULMONARY HYPERTENSION RVSP IS 42 MM OF HG AND IS HIGH
[2024-12-30] VITALS (16 sets, daily range): BP systolic 117–138; BP diastolic 76–97; PULSE 60–82; RESP 17–18; TEMP 97.4–98.3; O2SAT 90–98
--- NOTE | 2024-12-30 08:40 | DVHPN2 ---
Reviewed: Care Plan, H&P, Labs, Medications, Previous Orders, Radiology Changes from previous H/P or p: No Changes Eyes: No Pain, No Vision change, No Conjunctivae inflammation, No Eyelid inflammation, No Other, No Redness ENT: No Ear pain, No Ear discharge, No Nose pain, No Nose discharge, No Nose congestion, No Mouth pain, No Mouth swelling, No Throat pain, No Throat swelling, No Other Cardiovascular: Chest Pain; No Palpitations, No Orthopnea, No Paroxysmal Noc. Dyspnea, No Edema, No Lt Headedness, No Other Respiratory: No Cough, No Dry; Shortness of breath; No SOB with excertion, No Wheezing, No Hemoptysis, No Pleuritic Pain, No Sputum; Other (SOB at rest) Gastrointestinal: Nausea, Vomiting; No Abdominal Pain, No Diarrhea, No Constipation, No Melena, No Hematochezia, No Other Genitourinary: No Dysuria, No Frequency, No Incontinence, No Hematuria, No Retention, No Other Musculoskeletal: No other, No neck pain, No shoulder pain, No arm pain, No back pain, No hand pain, No leg pain, No foot pain Objective Vitals Vital Signs Date Time Temp Pulse Resp B/P (MAP) Pulse Ox O2 Delivery O2 Flow Rate FiO2 12/30/24 07:42 Room Air* 2 N/A Nasal Cannula* 12/30/24 06:47 71 18 96 12/30/24 05:00 98.0 117/76 (90) 98.0 Intake/Output Intake and Output 12/30/24 07:00 Intake Total 2150 ml Output Total 2675 ml Balance -525 ml Intake Oral 1850 ml IV Total 300 ml Output Urine Total 2675 ml # Bowel Movements 1 General Appearance: Alert, Oriented X3, Cooperative, No acute distress HEENT: Atraumatic, PERRLA, EOMI, Mucous membr. moist/pink Neck: Supple Lungs: Clear to auscultation, Normal air movement Cardiovascular: Regular rate, Normal S1, Normal S2, No murmurs, Gallops, Rubs Abdomen: Normal bowel sounds, Soft, No tenderness Neuro: Cranial nerves 3-12 NL Psych/Mental Status: Mental status NL Medications Current Medications Medications Dose Ordered Sig/Justine Route Start Time Stop Time Status Last Admin Dose Admin Azithromycin 250 ml @ 125 mls/hr DAILY@1900 IV 12/27/24 19:00 12/29/24 16:49 125 MLS/HR Carvedilol 12.5 mg Q12HR PO 12/26/24 22:00 12/29/24 21:46 12.5 MG Clonidine HCl 0.1 mg Q4HP PRN PO 12/26/24 21:30 Levothyroxine Sodium 100 mcg QAM@0600 PO 12/27/24 06:00 12/30/24 05:54 100 MCG Atorvastatin Calcium 20 mg HS PO 12/26/24 22:00 12/29/24 21:46 20 MG Ceftriaxone Sodium 50 ml @ 100 mls/hr DAILY@09 IV 12/27/24 09:00 12/30/24 08:29 100 MLS/HR Apixaban 5 mg BID PO 12/26/24 22:00 12/29/24 21:45 5 MG Sodium Chloride 10 ml Q8HR IV 12/26/24 22:00 12/30/24 05:55 10 ML Ondansetron HCl 4 mg Q4HP PRN IV 12/26/24 21:30 12/30/24 03:21 4 MG Docusate Sodium 100 mg BIDPRN PRN PO 12/26/24 21:30 Acetaminophen 650 mg Q6HP PRN PO 12/26/24 21:30 Guaifenesin/ Dextromethorphan 10 ml Q6HPRN PRN PO 12/26/24 22:00 12/30/24 03:21 10 ML Nitroglycerin 0.4 mg Q5MINP PRN SL 12/26/24 22:15 Morphine Sulfate 2 mg Q30M PRN IV 12/26/24 22:15 Albuterol 2.5 mg Q4HPRN PRN NEB 12/26/24 23:15 12/27/24 09:41 2.5 MG Ipratropium [place] 0.5 mg Q4HPRN PRN NEB 12/26/24 23:15 12/27/24 14:43 0.5 MG Levalbuterol HCl 0.625 mg Q6HWA NEB 12/27/24 18:00 12/30/24 06:38 0.625 MG Ipratropium [place] 0.5 mg Q6HWA NEB 12/27/24 18:00 12/30/24 06:37 0.5 MG Zolpidem Tartrate 10 mg HSPRN PRN PO 12/27/24 22:00 12/29/24 21:49 10 MG Acetaminophen/ Hydrocodone Bitart 1 tab Q6HP PRN PO 12/27/24 16:00 12/30/24 03:21 1 TAB Amiodarone HCl 400 mg Q12HR PO 12/28/24 10:00 12/29/24 21:45 400 MG Mupirocin 1 applic BID EACHNOSTRI 12/28/24 22:00 01/02/25 21:59 12/29/24 21:48 1 APPLIC Laboratory Results Laboratory Tests 12/29/24 04:56 Urinalysis Test 12/27/24 13:30 Urine Color Light-yellow (Yellow) Urine Clarity Clear (Clear) Urine pH 6.0 (5.0-9.0) Urine Specific [place] 1.015 (1.001-1.035) Urine Protein Negative (Negative) Urine Ketones Negative (Negative) Urine Blood Negative /uL (Negative) Urine Nitrite Negative (Negative) Urine Bilirubin Negative (Negative) Urine Urobilinogen Normal mg/dL (Negative) Urine Leukocyte Esterase Negative /uL (Negative) Urine RBC 2 /hpf (0 - 3) Urine Microscopic WBC 2 /HPF (0-3) Urine Squamous Epithelial Cells Few /hpf (<5) Urine Bacteria None seen /hpf (None Seen) Urine Glucose Normal mg/dL (Normal) Microbiology Microbiology Date/Time Source Procedure Growth Status 12/27/24 06:55 Nose MRSA Screen - Final Methicillin Resistant S.aureus Complete 12/26/24 15:52 Blood Blood Culture - Preliminary NO GROWTH AFTER 72 HOURS OF INCUBATION. 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 Acute renal injury Atrial fibrillation with RVR new onset: On amiodarone Sepsis secondary to possible pneumonia Pneumonia, Gram-positive versus gm neg: Rocephin azithromycin HTN DM type 2: Insulin sliding scale COPD Generalized weakness Per patient he was seen in [facility] 12/13/2024 Time spent 50 minutes Advanced care planning time 20 minutes Plan discussed with: Patient My Orders Orders - CHARLIE ORSENTHAL MD Procedure Category Date Status Time Echo 2d Mode Cardiac US 12/29/24 Resulted DOP 10:24 * Cardiology Consult CONS 12/29/24 Transmitted 10:24 Date of Service: Dec 30, 2024 Billing Provider: CHARLIE ROSENTHAL MD Common Visit Codes: [id number] INP/OBS CARE(HIGH) CHARLIE ROSENTHAL MD Dec 30, 2024 08:40
--- NOTE | 2024-12-30 12:02 | DVHPN2 ---
Progress Note - Dictate Date Seen: Dec 30, 2024 Medical Necessity Reason Pt with a Central, PICC or Fol: No Subjective [T WITH SIGN SX COMPLEX OF AFIB RVR PNEUMONITIS LEUKOCYTOSIS CHECT PAIN HOWEVER TROPONIN NEGATIVE CXR CONSISTENT WITH PNEUMONIA ECHO NL EF STRESS CARDIOLITE NL PERFUSION PMH ORGANIC HD HTN TYPE II DM VASCULOPATHY NEUROPATHY NEPHROPATHY COPD vital signs Vital Sign Date Time Temp Pulse Resp B/P (MAP) Pulse Ox O2 Delivery O2 Flow Rate FiO2 12/30/24 11:38 71 18 98 12/30/24 11:30 Room Air* 0 21 12/30/24 09:38 125/89 12/30/24 09:00 98.1 98.1 Total Intake and Output 12/29/24 12/29/24 12/30/24 15:00 23:00 07:00 Intake Total 50 ml 1450 ml 650 ml Output Total 1175 ml 1500 ml Balance 50 ml 275 ml -850 ml medications Current Medications Medications Dose Ordered Sig/Justine Route Start Time Stop Time Status Last Admin Dose Admin Azithromycin 250 ml @ 125 mls/hr DAILY@1900 IV 12/27/24 19:00 12/29/24 16:49 125 MLS/HR Carvedilol 12.5 mg Q12HR PO 12/26/24 22:00 12/30/24 09:38 12.5 MG Clonidine HCl 0.1 mg Q4HP PRN PO 12/26/24 21:30 Levothyroxine Sodium 100 mcg QAM@0600 PO 12/27/24 06:00 12/30/24 05:54 100 MCG Atorvastatin Calcium 20 mg HS PO 12/26/24 22:00 12/29/24 21:46 20 MG Ceftriaxone Sodium 50 ml @ 100 mls/hr DAILY@09 IV 12/27/24 09:00 12/30/24 08:29 100 MLS/HR Apixaban 5 mg BID PO 12/26/24 22:00 12/30/24 09:38 5 MG Sodium Chloride 10 ml Q8HR IV 12/26/24 22:00 12/30/24 05:55 10 ML Ondansetron HCl 4 mg Q4HP PRN IV 12/26/24 21:30 12/30/24 10:09 4 MG Docusate Sodium 100 mg BIDPRN PRN PO 12/26/24 21:30 Acetaminophen 650 mg Q6HP PRN PO 12/26/24 21:30 Guaifenesin/ Dextromethorphan 10 ml Q6HPRN PRN PO 12/26/24 22:00 12/30/24 09:41 10 ML Nitroglycerin 0.4 mg Q5MINP PRN SL 12/26/24 22:15 Morphine Sulfate 2 mg Q30M PRN IV 12/26/24 22:15 Albuterol 2.5 mg Q4HPRN PRN NEB 12/26/24 23:15 12/27/24 09:41 2.5 MG Ipratropium [place] 0.5 mg Q4HPRN PRN NEB 12/26/24 23:15 12/27/24 14:43 0.5 MG Levalbuterol HCl 0.625 mg Q6HWA NEB 12/27/24 18:00 12/30/24 11:29 0.625 MG Ipratropium [place] 0.5 mg Q6HWA NEB 12/27/24 18:00 12/30/24 11:29 0.5 MG Zolpidem Tartrate 10 mg HSPRN PRN PO 12/27/24 22:00 12/29/24 21:49 10 MG Acetaminophen/ Hydrocodone Bitart 1 tab Q6HP PRN PO 12/27/24 16:00 12/30/24 09:41 1 TAB Amiodarone HCl 400 mg Q12HR PO 12/28/24 10:00 12/30/24 09:39 400 MG Mupirocin 1 applic BID EACHNOSTRI 12/28/24 22:00 01/02/25 21:59 12/30/24 09:40 1 APPLIC laboratory and microbiology Laboratory Tests 12/29/24 04:56 Test 12/29/24 04:56 Range/Units Serum Glucose 82 74-106 mg/dL Problem List AFIB RVR PNEUMONITIS LEUKOCYTOSIS CHECT PAIN HOWEVER TROPONIN NEGATIVE CXR CONSISTENT WITH PNEUMONIA ECHO NL EF STRESS CARDIOLITE NL PERFUSION PMH ORGANIC HD HTN TYPE II DM VASCULOPATHY NEUROPATHY NEPHROPATHY COPD Assessment/Plan AMIODARONE ONCE PNEUMONIA ADEQUATELY TREATED MAY DC HOME WILL DC AMIODARONE OUTPATIENT ANTICOAG FOR NOW LEUKOCYTOSIS RESOLVED CXR OFTEN [facility]AG[facility] CLINICALLY PT HAS IMPROVED Plan discussed with: Patient KAROLYN BOSS MD Dec 30, 2024 12:02
[2024-12-31] VITALS (10 sets, daily range): BP systolic 115–135; BP diastolic 77–96; PULSE 60–75; RESP 14–18; TEMP 96.6–97.6; O2SAT 0–99
--- NOTE | 2024-12-31 08:41 | ECG ---
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
[2024-12-31] MEDS ORDERED: AZIT500T66 PO (09:22)
--- NOTE | 2024-12-31 09:35 | DVHDS2 ---
Discharge Summary Date of Admission Dec 26, 2024 at 22:04 Date of Discharge: Dec 31, 2024 Admitting Diagnosis Shortness of breath Wounds: None Labs/Diagnostic Data: Laboratory Results Test 12/29/24 04:56 12/28/24 14:07 12/27/24 13:30 12/27/24 05:35 White Blood Count 7.7 10^3/uL (4.4-10.8) Red Blood Count 3.76 10^6/uL (4.5-5.90) Hemoglobin 11.1 g/dL (13.5-17.5) Hematocrit 31.5 % (41.0-53.0) Mean Corpuscular Volume 83.8 fL (80.0-100.0) Mean Corpuscular Hemoglobin 29.6 pg (28.0-32.0) Mean Corpuscular Hemoglobin Concent 35.3 g/dL (32.0-36.0) Red Cell Distribution Width 16.1 % (11.8-14.3) Platelet Count 200 10^3/uL (140-450) Mean Platelet Volume 8.8 fL (6.9-10.8) Neutrophils (%) (Auto) 74.2 % (37.0-80.0) Lymphocytes (%) (Auto) 14.3 % (10.0-50.0) Monocytes (%) (Auto) 8.4 % (0.0-12.0) Eosinophils (%) (Auto) 2.6 % (0.0-7.0) Basophils (%) (Auto) 0.5 % (0.0-2.0) Neutrophils # (Auto) 5.7 10 ^3/uL (1.6-8.6) Lymphocytes # (Auto) 1.1 10 ^3/uL (0.4-5.4) Monocytes # (Auto) 0.6 10 ^3/uL (0-1.3) Eosinophils # (Auto) 0.2 10 ^3/uL (0-0.8) Basophils # (Auto) 0 10 ^3/uL (0-0.2) Nucleated Red Blood Cells 0.0 % Sodium Level 141 mmol/L (136-145) Potassium Level 4.1 mmol/L (3.5-5.1) Chloride Level 103 mmol/L (98-107) Carbon Dioxide Level 27 mmol/L (20-31) Anion Gap 11 (5-15) Blood Urea Nitrogen < 5 mg/dL (9-23) Creatinine 1.04 mg/dL (0.700-1.30) Glomerular Filtration Rate Calc 79 mL/min (>90) BUN/Creatinine Ratio 4.8 (10.0-20.0) Serum Glucose 82 mg/dL (74-106) Calcium Level 8.0 mg/dL (8.7-10.4) POC Glucose 116 mg/dl (70-106) Urine Color Light-yellow (Yellow) Urine Clarity Clear (Clear) Urine pH 6.0 (5.0-9.0) Urine Specific [place] 1.015 (1.001-1.035) Urine Protein Negative (Negative) Urine Ketones Negative (Negative) Urine Blood Negative /uL (Negative) Urine Nitrite Negative (Negative) Urine Bilirubin Negative (Negative) Urine Urobilinogen Normal mg/dL (Negative) Urine Leukocyte Esterase Negative /uL (Negative) Urine RBC 2 /hpf (0 - 3) Urine Microscopic WBC 2 /HPF (0-3) Urine Squamous Epithelial Cells Few /hpf (<5) Urine Bacteria None seen /hpf (None Seen) Urine Glucose Normal mg/dL (Normal) Total Bilirubin 1.1 mg/dL (0.2-1.0) Aspartate Amino Transferase (AST) 15 U/L (13-40) Alanine Aminotransferase (ALT) 10 U/L (7-40) Alkaline Phosphatase 42 U/L (46-116) Total Protein 7.0 g/dL (5.7-8.2) Albumin 4.4 g/dL (3.2-4.8) Test 12/26/24 15:52 12/26/24 15:35 12/26/24 14:45 Troponin I High Sensitivity < 3 ng/L (</=54) Lactic Acid Level 2.0 mmol/L (0.4-2.0) Thyroid Stimulating Hormone (TSH) 0.53 uIU/mL (0.55-4.78) Other Laboratory Tests 12/29/24 04:56 Brief Hx & Hospital Course: 64-year-old male with a history of hypertension diabetes COPD came in for generalized weakness also complained of chest pain troponin negative x3 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 Found to have new onset AFib placed on amiodarone by Dr. Shelby which will be continued until he sees Dr. Shelby. Found to have sepsis secondary to community-acquired pneumonia treated with the Rocephin azithromycin patient is on room air and feels better afebrile and vital signs are stable being discharged home on azithromycin he will follow up with next two week. Consults/Reason for consult Cardiology Dr. 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 Shelby in next week Medications: Azithromycin Transmitted to A pharmacy Scheduled Amlodipine Besylate (Amlodipine Besylate), 10 MG PO DAILY, (Reported) Atorvastatin Calcium (Lipitor), 1 TAB PO HS, (Reported) Azithromycin (Azithromycin), 1 TAB PO DAILY Baclofen (Baclofen), 10 MG PO BID, (Reported) Budesonide-Formoterol Fumarate (Breyna 160-4.5 Mcg/Act), 1 AER IN BID, (Reported) Carvedilol (Carvedilol), 6.25 MG PO BID, (Reported) Hydrocodone-Acetaminophen (Hydrocodone Bitartrate/AC 10-325 mg), 1 TAB PO QID, (Reported) Levothyroxine Sodium (Levothyroxine Sodium), 100 MCG PO QAM, (Reported) Losartan Potassium (Losartan Potassium), 100 MG PO DAILY, (Reported) Metformin Hydrochloride (Metformin Hcl), 1,000 MG PO BID, (Reported) Naldemedine Tosylate (Symproic), 0.2 MG PO DAILY, (Reported) Omeprazole (Gnp Omeprazole), 40 MG PO DAILY, (Reported) Pregabalin (Lyrica), 1 CAP PO TID, (Reported) Semaglutide (Ozempic), 1 MG SC QWEEKLY, (Reported) Tiotropium [place] Monohydrate (Spiriva Respimat), 1.25 MCG IN DAILY, (Reported) Scheduled PRN Meclizine Hcl (Meclizine Hcl), 25 MG PO BIDP PRN for DIZZINESS, (Reported) 39 (Time taken for discharge summary 39 minutes) Discharge Statement: "Patient was advised to return to the ER or call 911 if any headaches, dizziness, shortness of breath, chest pain, abdominal pain, bleeding, fevers, or worsening of medical condition. Patient was counseled about treatment plan, medications, possible side effects, patientverbalized understanding. All questions were answered to the best of my ability. 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
== END 2024-12-31 11:56 | disposition home or self-care (01) | DRG 871 ==
LOC: ER 14:36 → OVERFLOW 22:04 → TELE-CENTR 23:55
PROVIDERS: ADMIT Family Medicine; ATTEND Family Medicine
DX: A41.59 Other Gram-negative sepsis (principal); J15.69 Pneumonia due to other Gram-negative bacteria; J15.9 Unspecified bacterial pneumonia; J96.01 Acute respiratory failure with hypoxia; N17.0 Acute kidney failure with tubular necrosis; I48.91 Unspecified atrial fibrillation; J44.0 Chronic obstructive pulmonary disease with (acute) lower respiratory infection; N18.9 Chronic kidney disease, unspecified; I12.9 Hypertensive chronic kidney disease with stage 1 through stage 4 chronic kidney disease, or unspecified chronic kidney disease; E03.9 Hypothyroidism, unspecified; E11.22 Type 2 diabetes mellitus with diabetic chronic kidney disease; I95.9 Hypotension, unspecified; E78.5 Hyperlipidemia, unspecified; I25.10 Atherosclerotic heart disease of native coronary artery without angina pectoris; J44.9 Chronic obstructive pulmonary disease, unspecified; J98.4 Other disorders of lung; Z82.49 Family history of ischemic heart disease and other diseases of the circulatory system; Z80.51 Family history of malignant neoplasm of kidney; Z80.0 Family history of malignant neoplasm of digestive organs; Z79.4 Long term (current) use of insulin; Z79.01 Long term (current) use of anticoagulants
CPT/HCPCS: 36415; 71045; 80048; 80053; 81001; 82962; 83605; 84443; 84484; 85025; 87040; 87081; 93005; 93306; 94640; 99291; 99292; G0378; J2405; J3470